=== PATIENT | male | born 1930 | race Hispanic/Latino ===

== ENCOUNTER 2020-07-18 14:04 | Inpatient (IN) | payer MEDICARE ==
[~2020-07-18] VITALS: Ht 162.6 cm; Wt 79.4 kg
[2020-07-18] MEDS ORDERED: METFORMIN HCL500 MG PO (14:27)
[2020-07-18] MEDS ORDERED: METHOTREXATE2.5 MG PO (14:27)
[2020-07-18] MEDS ORDERED: METOPROLOL SUCC25 MG PO (14:27)
[2020-07-18] MEDS ORDERED: SIMVASTATIN40 MG PO (14:27)
[2020-07-18] MEDS ORDERED: GLIPIZIDE5 MG PO (14:27)
[2020-07-18] MEDS ORDERED: FOLIC ACID0.4 MG PO (14:27)
[2020-07-18] MEDS ORDERED: LEVOTHYROXINE50 MCG PO (14:27)
--- OUTSIDE RECORDS SUMMARY | 2020-07-18 14:36 | XMS REPORT | Continuity of Care Document ---
Author Author [facility] Organization [facility] Address [address] [place] [address] Phone Unavailable Care Team Providers Care Billet Shearer Name Role Phone ELEUTERIO REED, AURY PCP Unavailable ALESSANDRA GUTIERREZ Unavailable Payers Payer Name Policy Type Policy Number Effective Date Expiration Date S mary [employer] Medicare Replacement [id number] [facility] Problems This patient has no known problems. Allergies, Adverse Reactions, Alerts This patient has no known allergies or adverse reactions. Medications This patient has no known medications. Procedures Procedure Date / Time Performed Performing Clinician [facility] e X-ray of chest, two views 2019-12-10 00:00:[address] [facility] Encounters Start Date/Time End Date/Time Encounter Type Admission Type Attendi [facility] Care Department Encounter ID Source 2019-12-10 07:32:00 2019-12-10 11:15:00 Departed Emergency Room 1 ALESSANDRA GUTIERREZ [facility] [id number] [facility] Results Test Description Test Time Test Comments Results Result Comments Source CHEST 2 VIEWS 2019-12-10 10:21:00 [facility] [address] [place], [place] [address] Patient Name: SHERIE HEATON MR #: [id number] : 1930 Age/Sex: 89/M Req #: [id number] Adm Physician: Ordered by: ALESSANDRA GUTIERREZ DO Report #: [id number] Location: ER Room/Bed: Procedure: [id number] DX/CHEST 2 VIEWS Exam Date: 12/10/19 Exam Time: 0907 REPORT STATUS: Signed EXAMINATION: CHEST 2 VIEWS INDICATION: Chest pain COMPARISON: None FINDINGS: LINES/TUBES:None LUNGS:The lung volumes are low. Mild pulmonary vascular crowding related to low lung volumes. No focal consolidation or pulmonary [place]. PLEURA:No pleural effusion or pneumothorax. MEDIASTINUM:The cardiomediastinal silhouette appears normal in size and shape. Atherosclerotic calcifications of the thoracic aorta. BONES/SOFT TISSUES:No acute osseous injury. ABDOMEN:No free air under the diaphragm. IMPRESSION: Low lung volumes. No focal pneumonia or pulmonary edema. Signed by: Erin Carrizales MD on 12/10/2019 10:22 AM Dictated By: ERIN CARRIZALES MD 1022 Transcribed By: JIMMY on 12/10/19 1022 COPY TO: ALESSANDRA GUTIERREZ DO B-Type Natriuretic Peptide 2019-12-10 09:41:00 Test Item B-Type Natriuretic Peptide (test code = 80614-0) 403.8 0-100 H [facility]ine Kinase [id number] 08:54:00* Test Item Value Reference Range Interpretation Comments Creatine Kinase MB (test code = 11682-7) 2.10 0-5.0 [facility]inteTroponin [id number] 08:54:00* Test Item Value Reference Range Interpretation Comments Troponin I (test code = FYS8530) 0.022 0-0.300 [facility] [id number] 08:30:00* Test Item Value Reference Range Interpretation Comments Sodium Level (test code = 2951-2) 140 136-145 [facility]Potassium [id number] 08:30:00* Test Item Value Reference Range Interpretation Comments Potassium Level (test code = 2823-3) 4.3 3.5-5.1 [facility]Chloride [id number] 08:30:00* Test Item Value Reference Range Interpretation Comments Chloride Level (test code = 2075-0) 108 98-107 H [facility]inteCarbon Dioxide [id number] 08:30:00* Test Item Value Reference Range Interpretation Comments Carbon Dioxide Level (test code = 2028-9) 24 22-29 [facility]inteAnion [id number] 08:30:00* Test Item Value Reference Range Interpretation Comments Anion Gap (test code = 37107-1) 12.3 8-16 [facility]inteBlood Urea Fzvpgmpp5910-63-89 08:30:00* Test Item Value Reference Range Interpretation Comments Blood Urea Nitrogen (test code = 3094-0) 12 7-26 [facility]inteCreatinine2020-01-14 08:30:00* Test Item Value Reference Range Interpretation Comments Creatinine (test code = 2160-0) 0.84 0.72-1.25 [facility]inteBUN/Creatinine Cwikp0436-12-29 08:30:00* Test Item Value Reference Range Interpretation Comments BUN/Creatinine Ratio (test code = 3097-3) 14 6- [facility] PointeEstimat Glomerular Filtration Rate 2019-12-10 08:30:00* Test Item Value Reference Range Interpretation Comments Estimat Glomerular Filtration Rate (test code = 683385746) > 60 >60 Ranges were taken from the National Kidney Disease Education Program and the [facility] Foundation literature.Reference ranges:60 or greater: Rcmnja16-25 ( for 3 consecutive months): Chronic kidney disease 15 or less: Kidney failureBaylor Scott & [facility] Medical Center – Lake PointeGlucose Whqkr5768-10-41 08:30:00* Test Item Value Reference Range Interpretation Comments Glucose Level (test code = NFZ0221) 90 74-118 [facility]inteCalcium Brrbj9946-19-29 08:30:00* Test Item Value Reference Range Interpretation Comments Calcium Level (test code = 80960-9) 8.1 8.4-10.2 L [facility] PointeTotal Zeyrjwkrh0660-01-17 08:30:00* Test Item Value Reference Range Interpretation Comments Total Bilirubin (test code = 1975-2) 1.0 0.2-1.2 [facility] PointeAspartate Amino Transf (AST/SGOT) 2019-12-10 08:30:00* Test Item Value Reference Range Interpretation Comments Aspartate Amino Transf (AST/SGOT) (test code = Aspartate Amino Transf (AST/SGOT)) 44 5-34 H [facility] PointeAlanine Aminotransferase (ALT/SGPT) 2019-12-10 08:30:00* Test Item Value Reference Range Interpretation Comments Alanine Aminotransferase (ALT/SGPT) (test code = 1742-6) 25 0-55 [facility] Yhjlbyz3445-03-03 08:30:00* Test Item Value Reference Range Interpretation Comments Total Protein (test code = 2885-2) 6.4 6.5-8.1 L [facility] PointeAlbumin2020-01-14 08:30:00* Test Item Value Reference Range Interpretation Comments Albumin (test code = 1751-7) 2.9 3.5-5.0 L [facility] PointeGlobulin2020-01-14 08:30:00* Test Item Value Reference Range Interpretation Comments Globulin (test code = 21866-2) 3.5 2.3-3.5 [facility] PointeAlbumin/Globulin [id number] 08:30:00 * Test Item Value Reference Range Interpretation Comments Albumin/Globulin Ratio (test code = 1759-0) 0.8 0.8-2.0 [facility] PointeAlkaline Szfwsrobahx8586-23-26 08:30:00* Test Item Value Reference Range Interpretation Comments Alkaline Phosphatase (test code = 6768-6) 138 40-150 [facility]inteCreatine [id number] 08:30:00* Test Item Value Reference Range Interpretation Comments Creatine Kinase (test code = 2157-6) 71 30-200 [facility] PointeWhite Blood [id number] 08:08:00* Test Item Value Reference Range Interpretation Comments White Blood Count (test code = 6690-2) 5.80 4.8-10.8 [facility] PointeRed Blood Fxhju0268-96-84 08:08:00* Test Item Value Reference Range Interpretation Comments Red Blood Count (test code = 789-8) 2.89 4.3-5.7 L [facility] PointeHemoglobin2020-01-14 08:08:00* Test Item Value Reference Range Interpretation Comments Hemoglobin (test code = 35192-7) 9.8 14.0-18.0 L [facility] PointeHematocrit2020-01-14 08:08:00* Test Item Value Reference Range Interpretation Comments Hematocrit (test code = 4544-3) 28.7 38.2-49.6 L [facility] PointeMean Corpuscular Bfsbjh3439-49-90 08:08:00* Test Item Value Reference Range Interpretation Comments Mean Corpuscular Volume (test code = 787-2) 99.3 81-99 H [facility] PointeMean Corpuscular Qnlxgtollj5708-15-96 08:08:00* Test Item Value Reference Range Interpretation Comments Mean Corpuscular Hemoglobin (test code = 785-6) 33.9 28-32 H [facility] PointeMean Corpuscular Hemoglobin Concent 2019-12-10 08:08:00* Test Item Value Reference Range Interpretation Comments Mean Corpuscular Hemoglobin Concent (test code = 786-4) 34.1 31-35 [facility] PointeRed Cell Distribution Epujm7327-60-29 08:08:00* Test Item Value Reference Range Interpretation Comments Red Cell Distribution Width (test code = 07185-7) 16.1 11.7 -14.4 H [facility] PointePlatelet Wglsy5318-62-07 08:08:00* Test Item Value Reference Range Interpretation Comments Platelet Count (test code = 777-3) 82 140-360 L [facility] PointeNeutrophils (%) (Auto)2019-12-10 08:08:00 * Test Item Value Reference Range Interpretation Comments Neutrophils (%) (Auto) (test code = 01029-8) 68.9 38.7-80.0 [facility] PointeLymphocytes (%) (Auto)2019-12-10 08:08:00 * Test Item Value Reference Range Interpretation Comments Lymphocytes (%) (Auto) (test code = 736-9) 17.4 18.0-39.1 L [facility] PointeMonocytes (%) (Auto)2019-12-10 08:08:00* Test Item Value Reference Range Interpretation Comments Monocytes (%) (Auto) (test code = 5905-5) 10.5 4.4-11.3 [facility]inteEosinophils (%) (Auto)2019-12-10 08:08:00 * Test Item Value Reference Range Interpretation Comments Eosinophils (%) (Auto) (test code = 713-8) 2.6 0.0-6.0 [facility] PointeBasophils (%) (Auto)2019-12-10 08:08:00* Test Item Value Reference Range Interpretation Comments Basophils (%) (Auto) (test code = 706-2) 0.3 0.0-1.0 [facility] PointeIM GRANULOCYTES %2019-12-10 08:08:00* Test Item Value Reference Range Interpretation Comments IM GRANULOCYTES % (test code = IM GRANULOCYTES %) 0.3 0.0- 1.0 [facility] PointeNeutrophils # (Auto)2019-12-10 08:08:00* Test Item Value Reference Range Interpretation Comments Neutrophils # (Auto) (test code = 751-8) 4.0 2.1-6.9 [facility] PointeLymphocytes # (Auto)2019-12-10 08:08:00* Test Item Value Reference Range Interpretation Comments Lymphocytes # (Auto) (test code = 65524-2) 1.0 1.0-3.2 [facility] PointeMonocytes # (Auto)2019-12-10 08:08:00* Test Item Value Reference Range Interpretation Comments Monocytes # (Auto) (test code = 742-7) 0.6 0.2-0.8 [facility]inteEosinophils # (Auto)2019-12-10 08:08:00* Test Item Value Reference Range Interpretation Comments Eosinophils # (Auto) (test code = 711-2) 0.2 0.0-0.4 [facility]inteBasophils # (Auto)2019-12-10 08:08:00* Test Item Value Reference Range Interpretation Comments Basophils # (Auto) (test code = 704-7) 0.0 0.0-0.1 [facility] Lake PointeAbsolute Immature Granulocyte (auto 2019-12-10 08:08:00* Test Item Value Reference Range Interpretation Comments Absolute Immature Granulocyte (auto (rich t code = Absolute Immature Granulocyte (auto) 0.02 0-0.1 [facility]
[2020-07-18 14:54] LABS: BASOPHILS % 0.2 % (0.0-1.0); EOSINOPHILS # (AUTO) 0.2 (0.0-0.4); LYMPHOCYTES # (AUTO) 0.6 (1.0-3.2); LYMPHOCYTES % 10.9 % (18.0-39.1); MEAN CORPUSCULAR HEMOGLOBIN 34.5 pg (28-32); MEAN CORPUSCULAR HGB CONC 34.3 g/dL (31-35); MEAN CORPUSCULAR VOLUME 100.6 fL (81-99); MONOCYTES % 0.8 % (4.4-11.3); NEUTROPHILS # (AUTO) 4.4 (2.1-6.9); NEUTROPHILS % 83.7 % (38.7-80.0); RED BLOOD COUNT 1.71 x10e6/uL (4.3-5.7); RED CELL DISTRIBUTION WIDTH 14.9 % (11.7-14.4)
[2020-07-18 15:13] LABS: HEMATOCRIT 17.2 % (38.2-49.6); HEMOGLOBIN 5.9 g/dL (14.0-18.0); PLATELET COUNT 34 x10e3/uL (140-360)
[2020-07-18 15:23] LABS: ALANINE AMINOTRANSFERASE 74 IU/L (0-55); ALBUMIN 2.4 g/dL (3.5-5.0); ALBUMIN/GLOBULIN RATIO 0.7 (0.8-2.0); ALKALINE PHOSPHATASE 143 IU/L (40-150); ANION GAP 15.3 mmol/L (8-16); BLOOD UREA NITROGEN 36 mg/dL (7-26); BUN/CREATININE RATIO 32 (6-25); CALCIUM 8.3 mg/dL (8.4-10.2); CARBON DIOXIDE 19 mmol/L (22-29); CHLORIDE 109 mmol/L (98-107); CREATINE KINASE 46 IU/L (30-200); CREATININE, SERUM 1.14 mg/dL (0.72-1.25); EST GLOMERULAR FILTRATION RATE > 60 ML/MIN (60-); GLUCOSE 73 mg/dL (74-118); MAGNESIUM 1.8 MG/DL (1.3-2.1); POTASSIUM 4.3 mmol/L (3.5-5.1); SODIUM 139 mmol/L (136-145)
[2020-07-18] MEDS ORDERED: SODIUM CHLORIDE 0.9% 250ML 250 ML IV ONE (15:30)
[2020-07-18] MEDS ORDERED: PANTOPRAZOLE 40 MG 10ML VIAL IV ONE (15:51)
[2020-07-18] MEDS ORDERED: OCTREOTIDE ACETATE 0.05 MG/ML AMP IV STA (15:51)
[2020-07-18] MEDS ORDERED: OCTREOTIDE ACETATE 400 MCG in SODIUM CHLORIDE 0.9% 250ML 200 ML IV SCH (16:00)
--- NOTE | 2020-07-18 16:07 | Emergency Department Note ---
History of Present Illnes History of Present Illness Chief Complaint: General Medicine Complaints History of Present Illness This is a 89 year old male WITH GENERALIZED WEAKNESS & SOB WITH EXERTION, MUCH WORSE TODAY BUT STARTED SEVERAL DAYS AGO. ALSO WITH NAUSEA. STS THAT LAST TIME HE FELT LIKE THIS HE NEEDED A BLOOD TRANSFUSION. THAT WAS 6 MONTHS AGO. Historian: Patient Arrival Mode: Car Onset (how long ago): day(s) (5) Location: GENERALIZED Quality: WEAKNESS/FATIGUE Radiation: Reports non-radiation Severity: moderate Onset quality: gradual Timing of current episode: constant Progression: worsening Chronicity: recurrent Context: Denies recent illness Relieving factors: none Exacerbating factors: none Associated symptoms: Reports denies other symptoms, Reports shortness of breath; Denies chest pain, Denies cough, Denies diaphoresis, Denies fever/chills Past Medical/Family History Physician Review I have reviewed the patient's past medical and family history. Any updates have been documented here. Past Medical History Recent Fever: No Clinical Suspicion of Infectio: No New/Unexplained Change in Ment: No Past Medical History: Hypertension, Diabetes, Anemia Other Surgery: LEFT EAR SURGERY Social History Smoking Cessation: Never Smoker Counseling Performed: No Alcohol Use: None Any Illegal Drug Use: No TB Exposure/Symptoms: No Physically hurt or threatened: No Family History Family history of heart diseas: No Other Last Tetanus: UNKNOWN Any Pre-Existing Lines (PICC,: No Review of Systems Review of Systems Constitutional: Reports as per HPI EENTM: Reports no symptoms Cardiovascular: Reports no symptoms Respiratory: Reports as per HPI Gastrointestinal: Reports no symptoms Genitourinary: Reports no symptoms Musculoskeletal: Reports no symptoms Integumentary: Reports no symptoms Neurological: Reports no symptoms Psychological: Reports no symptoms Endocrine: Reports no symptoms Hematological/Lymphatic: Reports no symptoms Physical Exam Related Data Allergies: Coded Allergies: No Known Allergies (Unverified , 12/10/19) Triage Vital Signs Vital Signs Date Time Temp Pulse Resp B/P (MAP) Pulse Ox O2 Delivery O2 Flow Rate FiO2 07/18/20 14:11 98.4 85 18 163/60 100 Room Air Vital signs reviewed: Yes Physical Exam CONSTITUTIONAL Constitutional: Present well-developed, Present well-nourished HENT HENT: Present normocephalic, Present atraumatic, Present oropharynx clear/moist, Present nose normal HENT L/R: Present left ext ear normal, Present right ext ear normal EYES Eyes: Reports PERRL, Reports other (PALE CONJUNCTIVA) NECK Neck: Present ROM normal PULMONARY Pulmonary: Present effort normal, Present breath sounds normal CARDIOVASCULAR Cardiovascular: Present regular rhythm, Present heart sounds normal, Present capillary refill normal, Present normal rate, Present LLE edema (TRACE), Present RLE edema (TRACE) GASTROINTESTINAL Abdominal: Present soft, Present nontender, Present bowel sounds normal GENITOURINARY Genitourinary: Present exam deferred SKIN Skin: Present warm, Present dry MUSCULOSKELETAL Musculoskeletal: Present ROM normal NEUROLOGICAL Neurological: Present alert, Present oriented x 3, Present no gross motor or sensory deficits PSYCHOLOGICAL Psychological: Present mood/affect normal, Present judgement normal Results Laboratory Result Diagram: 07/18/20 1435 07/18/20 1435 Laboratory Laboratory Tests Test 07/18/20 14:35 White Blood Count 5.25 x10e3/uL (4.8-10.8) Red Blood Count 1.71 x10e6/uL (4.3-5.7) Hemoglobin 5.9 g/dL (14.0-18.0) Hematocrit 17.2 % (38.2-49.6) Mean Corpuscular Volume 100.6 fL (81-99) Mean Corpuscular Hemoglobin 34.5 pg (28-32) Mean Corpuscular Hemoglobin Concent 34.3 g/dL (31-35) Red Cell Distribution Width 14.9 % (11.7-14.4) Platelet Count 34 x10e3/uL (140-360) Neutrophils (%) (Auto) 83.7 % (38.7-80.0) Lymphocytes (%) (Auto) 10.9 % (18.0-39.1) Monocytes (%) (Auto) 0.8 % (4.4-11.3) Eosinophils (%) (Auto) 4.0 % (0.0-6.0) Basophils (%) (Auto) 0.2 % (0.0-1.0) Neutrophils # (Auto) 4.4 (2.1-6.9) Lymphocytes # (Auto) 0.6 (1.0-3.2) Monocytes # (Auto) 0.0 (0.2-0.8) Eosinophils # (Auto) 0.2 (0.0-0.4) Basophils # (Auto) 0.0 (0.0-0.1) Absolute Immature Granulocyte (auto 0.02 x10e3/uL (0-0.1) Sodium Level 139 mmol/L (136-145) Potassium Level 4.3 mmol/L (3.5-5.1) Chloride Level 109 mmol/L (98-107) Carbon Dioxide Level 19 mmol/L (22-29) Anion Gap 15.3 mmol/L (8-16) Blood Urea Nitrogen 36 mg/dL (7-26) Creatinine 1.14 mg/dL (0.72-1.25) Estimat Glomerular Filtration Rate > 60 ML/MIN (60-) BUN/Creatinine Ratio 32 (6-25) Glucose Level 73 mg/dL (74-118) Calcium Level 8.3 mg/dL (8.4-10.2) Magnesium Level 1.8 MG/DL (1.3-2.1) Total Bilirubin 1.4 mg/dL (0.2-1.2) Aspartate Amino Transf (AST/SGOT) 111 IU/L (5-34) Alanine Aminotransferase (ALT/SGPT) 74 IU/L (0-55) Alkaline Phosphatase 143 IU/L (40-150) Creatine Kinase 46 IU/L (30-200) Creatine Kinase MB 1.00 ng/mL (0-5.0) Troponin I 0.028 ng/mL (0-0.300) B-Type Natriuretic Peptide 285.9 pg/mL (0-100) Total Protein 5.8 g/dL (6.5-8.1) Albumin 2.4 g/dL (3.5-5.0) Globulin 3.4 g/dL (2.3-3.5) Albumin/Globulin Ratio 0.7 (0.8-2.0) Lab results reviewed: Yes Imaging Imaging Comments STILL AWAIT RADIOLOGIST READING Critical Care Time Total Critical Care Time (min): 35 Critical care time exclusive o: separately billable procedures Critcal care necessary due to: other (ANEMIA) Critcal care time spent by me: discussion w consultants, discussion w primary provider, evaluation patient response to tx, order/review laboratory studies, re-evaluation of patient condition Assessment & Plan Medical Decision Making MDM CBC, CHEM, CARDIACS, CXR, BNP, PT/PTT - R/O SYMPTOMATIC ANEMIA, CHF, PNEUMONIA, NSTEMI Reassessment Reassessment SPOKE WITH DR GRAF FOR ADMISSION, CALL TO Montse NARAYAN Assessment & Plan Final Impression: (1) Anemia (2) Thrombocytopenia Depart Disposition: ADMITTED Last Vital Signs Date Time Temp Pulse Resp B/P (MAP) Pulse Ox O2 Delivery O2 Flow Rate FiO2 07/18/20 14:52 85 17 135/48 100 Room Air 07/18/20 14:11 98.4 Home Meds Reported Medications Simvastatin (SIMVASTATIN) 40 Mg Tablet, 40 MG PO 2100, #30 TAB 07/18/20 Levothyroxine Sodium (LEVOTHYROXINE SODIUM) 50 Mcg Tablet, 25 MCG PO DAILY, #30 TAB 07/18/20 Folic Acid (FOLIC ACID) 0.4 Mg Tablet, 1 TAB PO DAILY 07/18/20 Methotrexate Sodium (METHOTREXATE) 2.5 Mg Tablet, 2.5 MG PO DAILY, #30 TAB 07/18/20 Metoprolol Succinate (METOPROLOL SUCCINATE) 25 Mg Tab.er.24h, 25 MG PO DAILY 07/18/20 Glipizide (GLIPIZIDE) 5 Mg Tablet, 10 MG PO DAILY, TAB 07/18/20 Metformin Hcl (METFORMIN HCL) 500 Mg Tablet, 500 MG PO BID, #60 TAB 07/18/20 Medications in the ED Sodium Chloride 250 ml @ 0 mls/hr ONCE ONCE IV ; Start 07/18/20 at 15:30; Stop 07/18/20 at 15:31 Furosemide 20 mg UD PRN IV SHORTNESS OF BREATH; Start 07/18/20 at 15:30; Stop 08/17/20 at 15:29 Pantoprazole Sodium 80 mg NOW ONCE IV ; Start 07/18/20 at 15:51; Stop 07/18/20 at 15:52 Pantoprazole Sodium 40 mg Q12HR IV ; Start 07/18/20 at 21:00; Stop 08/17/20 at 20:59 Octreotide Acetate 0.05 mg ONCE STAT IV ; Start 07/18/20 at 15:51; Stop 07/18/20 at 15:52 Octreotide Acetate 400 mcg/ Sodium Chloride 200 ml @ 25 mls/hr Q8H IV ; Start 07/18/20 at 16:00; Stop 07/18/20 at 16:02; Status DC Octreotide Acetate 500 mcg/ Sodium Chloride 250 ml @ 25 mls/hr Q10H IV ; Start 07/18/20 at 16:15; Stop 08/17/20 at 16:14 TIFFANY LEONARD MD Jul 18, 2020 16:06
[2020-07-18 16:09] LABS: INR 1.17; PROTHROMBIN TIME 15.5 seconds (11.9-14.5)
[2020-07-18 16:10] LABS: PARTIAL THROMBOPLASTIN TIME 35.3 seconds (23.8-35.5)
[2020-07-18] MEDS ORDERED: SODIUM CHLORIDE 0.9% 1000ML 1,000 ML IV SCH (16:15)
[2020-07-18] MEDS: OCTREOTIDE ACETATE 500 MCG in SODIUM CHLORIDE 0.9% 250ML 249 ML IV SCH (16:38)
--- NOTE | 2020-07-18 16:40 | NUR ---
consent for blood signed and placed into chart
[2020-07-18 16:59] LABS: EOSINOPHILS % (MANUAL) 3 % (0-7)
[2020-07-18 17:00] LABS: LYMPHOCYTES % (MANUAL) 8 % (19-48); NEUTROPHILS % (MANUAL) 89 % (40-74)
[2020-07-18 17:01] LABS: RBC MORPHOLOGY COMMENT NORMAL
--- NOTE | 2020-07-18 17:25 | Diagnostic Imaging Report ---
EXAMINATION: CHEST SINGLE (PORTABLE) INDICATION: SOB. COMPARISON: Chest radiograph 12-10-2019. FINDINGS: LINES/TUBES:None LUNGS:The lung volumes are low with vascular crowding. No evidence of pneumonia or pulmonary edema. PLEURA:No pleural effusion or pneumothorax. MEDIASTINUM:The cardiomediastinal silhouette appears normal in size and shape. Atherosclerotic calcifications of the thoracic aorta. BONES/SOFT TISSUES:No acute osseous injury. ABDOMEN:No free air under the diaphragm. IMPRESSION: No acute radiographic abnormality. Signed by: Dr. Terence Louis MD on 07/18/2020 5:22 PM
--- NOTE | 2020-07-18 18:03 | NUR ---
Received patient from ER. Respiration even and unlabored without SOB. 1st unit of blood is transfusing at this time to right AC and Sandostatin IV transfusing to Left AC. Denies pain. Patient orientated to room and call button.
--- NOTE | 2020-07-18 18:45 | NUR ---
1st unit of blood is finished at this time. VS stable. Denies SOB. Call light in reach. Report given to night nurse.
[2020-07-18] MEDS ORDERED: ASPIRIN81 MG (19:09)
--- NOTE | 2020-07-18 20:04 | NUR ---
RECEIVED PT IN BED AOX3 .RESPIRATIONS ARE EVEN AND UNLABORED PT GOT 1 UNIT OF BLOOD .AND SOMATOSTATIN IS INFUSING .DENIES PAIN CALL LIGHT WITH IN REACH ,CONTINUE TO MONITOR
[2020-07-18] MEDS: PANTOPRAZOLE 40 MG 10ML VIAL IV SCH (21:03)
[2020-07-18] MEDS ORDERED: SODIUM CHLORIDE 0.9% 250ML 250 ML ONE (21:13)
[2020-07-18] MEDS: FUROSEMIDE INJ 10 MG/ML 2 ML VIAL IV PRN (22:00)
[2020-07-19] VITALS (9 sets, daily range): BP systolic 108–165; BP diastolic 62–90
[2020-07-19] MEDS ORDERED: DEXTROSE 50% SYRINGE 50 ML IV PRN
[2020-07-19] MEDS ORDERED: SODIUM CHLORIDE 0.9% 250ML 250 ML ONE ×2 (01:56→22:59)
[2020-07-19] MEDS: OCTREOTIDE ACETATE 500 MCG in SODIUM CHLORIDE 0.9% 250ML 249 ML IV SCH ×3 (02:15→23:00)
--- NOTE | 2020-07-19 03:09 | NUR ---
2ND UNIT OF BLOOD IA GIVEN ,NO ACUTE DISTRESS NOTED .3RD UNIT OF BLOOD IS INFUSING DENIES PAIN CALL LIGHT WITH IN REACH ,CONTINUE TO MONIOTR
[2020-07-19] MEDS: FUROSEMIDE INJ 10 MG/ML 2 ML VIAL IV PRN (05:00)
[2020-07-19] MEDS ORDERED: ACETAMINOPHEN 325 MG TAB PO ONE (05:45)
--- NOTE | 2020-07-19 06:29 | NUR ---
GIVEN 2 UNIT OF BLOOD DURING THE SHIFT ,NO ACUTE DISTRESS NOTED ,PT C/O HEADACHE GIVEN TYLENOL 650 X1 ,CONTINUE TO MONITOR
--- NOTE | 2020-07-19 07:00 | NUR ---
RCD PT AT BED PT IS ALERT AND ORIENTED PT RESTING ON BED BED LOW AND LOCKED CALL LIGHT IN REAC
--- NOTE | 2020-07-19 07:13 | NUR ---
BEDSIDE REPORT GIVEN TO THE ONCOMING NURSE
[2020-07-19] MEDS: INSULIN REGULAR, HUMAN 100 UNIT/1 ML 3ML VIAL SQ SCH ×4 (07:30→21:00)
[2020-07-19 08:22] LABS: EOSINOPHILS # (AUTO) 0.1 (0.0-0.4); EOSINOPHILS % 3.2 % (0.0-6.0); HEMOGLOBIN 9.2 g/dL (14.0-18.0); LYMPHOCYTES # (AUTO) 0.5 (1.0-3.2); LYMPHOCYTES % 10.9 % (18.0-39.1); MEAN CORPUSCULAR HEMOGLOBIN 31.9 pg (28-32); MEAN CORPUSCULAR HGB CONC 34.1 g/dL (31-35); MEAN CORPUSCULAR VOLUME 93.8 fL (81-99); MONOCYTES % 0.7 % (4.4-11.3); NEUTROPHILS # (AUTO) 3.5 (2.1-6.9); NEUTROPHILS % 84.7 % (38.7-80.0); RED BLOOD COUNT 2.88 x10e6/uL (4.3-5.7); RED CELL DISTRIBUTION WIDTH 15.1 % (11.7-14.4)
[2020-07-19 08:32] LABS: PLATELET COUNT 19 x10e3/uL (140-360)
--- NOTE | 2020-07-19 08:45 | NUR ---
PAGED AND NOTIFIED THE PLATELET LEVEL TO TED ORTEGA ,NO NEW ORDERS SINCE THE PT RUNNING ONE UNIT OF PLATELET
[2020-07-19 08:47] LABS: ALBUMIN 2.4 g/dL (3.5-5.0); ALBUMIN/GLOBULIN RATIO 0.7 (0.8-2.0); ANION GAP 13.8 mmol/L (8-16); CALCIUM 8.2 mg/dL (8.4-10.2); CREATININE, SERUM 1.16 mg/dL (0.72-1.25); POTASSIUM 4.8 mmol/L (3.5-5.1)
--- NOTE | 2020-07-19 08:50 | NUR ---
PLATELET TRANSFUSION STARTED AFTER VERIFIED WITH ANOTHER RN AND AFTER VITALS
[2020-07-19] MEDS: LEVOTHYROXINE SODIUM 50 MCG TAB PO SCH (09:00)
[2020-07-19] MEDS: PANTOPRAZOLE 40 MG 10ML VIAL IV SCH ×2 (09:00→21:21)
[2020-07-19] MEDS: METOPROLOL SUCCINATE 25 MG TAB XL PO SCH (09:00)
[2020-07-19 09:06] LABS: % IRON SATURATION 96 % (15-50); IRON 194 ug/dL (65-175); TOTAL IRON BINDING CAPACITY 203 ug/dL (261-478); TRANSFERRIN 145 mg/dL (174-364)
[2020-07-19 09:12] LABS: B-TYPE NATRIURETIC PEPTIDE2 193.8 pg/mL (0-100)
[2020-07-19] MEDS ORDERED: SODIUM CHLORIDE 0.9% 1000ML 1,000 ML IV ONE (10:00)
--- NOTE | 2020-07-19 10:27 | NUR ---
pt went to procedure in safe condition
[2020-07-19] MEDS ORDERED: IOPAMIDOL 370 MG/ML 200 ML INFUS..BTL INJ ONE (10:32)
--- NOTE | 2020-07-19 11:01 | Diagnostic Imaging Report ---
EXAM: CT Abdomen and Pelvis WITH contrast INDICATION: Thrombocytopenia. Anemia. Elevated liver enzymes and anemia. COMPARISON: None. TECHNIQUE: Abdomen and pelvis were scanned utilizing a multidetector helical scanner from the lung base to the pubic symphysis after administration of IV contrast. Coronal and sagittal reformations were obtained. Routine protocol was performed. Scan was performed when during portal venous phase. IV CONTRAST: 150 mL of Omnipaque 300 ORAL CONTRAST: Water RADIATION DOSE: Total DLP: 759.80 mGy*cm Estimated effective dose: (DLP x 0.015 x size factor) mSv COMPLICATIONS: None FINDINGS: LINES and TUBES: None. LOWER THORAX: Bibasilar atelectasis. Extensive coronary artery calcifications. HEPATOBILIARY: Mild nodular hepatic contour. The liver is shrunken, with a hypertrophy of the caudate lobe, consistent with cirrhotic morphology. No focal hepatic lesions. No biliary ductal dilation. GALLBLADDER: There are cholecystectomy clips. SPLEEN: No splenomegaly. PANCREAS: No focal masses or ductal dilatation. ADRENALS: No adrenal nodules KIDNEYS/URETERS: Kidneys enhance symmetrically. No hydronephrosis. No cystic or solid mass lesions. No stones. GI TRACT: No abnormal distention to suggest obstruction. Mild diffuse wall thickening of the colon may be in part related to underdistention, however, cannot exclude portal colon. There is also diffuse wall thickening of the second and third portions of the duodenum. There are diverticula within the colon without evidence of diverticulitis. Appendix is nonvisualized, with metallic densities in the right lower quadrant, possibly reflecting appendectomy. PELVIC ORGANS/BLADDER: Unremarkable. LYMPH NODES: No lymphadenopathy. VESSELS: There is moderate atherosclerotic disease in the aorta and major arterial branches. Extensive collateral venous circulation, with spontaneous left splenorenal shunt. Recanalized umbilical vein. Minimal hypodensity in the anterior aspect as seen on image 29 series 2 consistent with mild nonocclusive thrombus. PERITONEUM / RETROPERITONEUM: Moderate volume ascites. BONES: There are degenerative changes in the lumbar spine. Lower thoracic DISH. SOFT TISSUES: Unremarkable. IMPRESSION: 1. Hepatic cirrhosis. 2. Portal hypertension with a large collaterals and spontaneous left splenorenal shunt. 3. Mild nonocclusive main portal vein thrombus. This could be further evaluated with ultrasound Doppler of the hepatosplenic vasculature if warranted. 4. Moderate volume ascites. 5. Status post cholecystectomy. No significant biliary dilatation. 6. Diverticulosis coli without acute diverticulitis. Signed by: Dr. Erik Westbrook M.D. on 07/19/2020 10:57 AM
--- NOTE | 2020-07-19 11:02 | Diagnostic Imaging Report ---
EXAMINATION: CHEST SINGLE (PORTABLE) INDICATION: SOB. COMPARISON: Chest radiograph 07/18/2020. FINDINGS: LINES/TUBES:None LUNGS:The lung volumes are low with bibasilar subsegmental atelectasis and crowding of the pulmonary vasculature bilaterally. No evidence of pneumonia or pulmonary edema. PLEURA:No pleural effusion or pneumothorax. MEDIASTINUM:The cardiomediastinal silhouette appears normal in size and shape. Atherosclerotic calcifications of the thoracic aorta. BONES/SOFT TISSUES:No acute osseous injury. ABDOMEN:No free air under the diaphragm. IMPRESSION: Mild bibasilar atelectasis. Signed by: Dr. Erik Westbrook M.D. on 07/19/2020 10:58 AM
--- NOTE | 2020-07-19 11:18 | NUR ---
AC TO LAB PAGED AND TALKED DR GRAF REGARDING THE NEXT CBC HE SAID SKIP THE NEXT ONE
--- NOTE | 2020-07-19 14:00 | NUR ---
PLATELET LEVEL AND OCCULT BLOOD POSITIVE NOTIFIED TO DR GRAF WHEN HE CAME TO SEE THE PATIENT
[2020-07-19] MEDS: SODIUM CHLORIDE 0.9% 1000ML 1,000 ML IV SCH (15:30)
[2020-07-19 17:50] LABS: EOSINOPHILS # (AUTO) 0.1 (0.0-0.4); EOSINOPHILS % 2.5 % (0.0-6.0); HEMATOCRIT 27.3 % (38.2-49.6); HEMOGLOBIN 9.1 g/dL (14.0-18.0); LYMPHOCYTES # (AUTO) 0.4 (1.0-3.2); MEAN CORPUSCULAR HEMOGLOBIN 31.7 pg (28-32); MEAN CORPUSCULAR HGB CONC 33.3 g/dL (31-35); MEAN CORPUSCULAR VOLUME 95.1 fL (81-99); MONOCYTES % 0.7 % (4.4-11.3); NEUTROPHILS # (AUTO) 3.8 (2.1-6.9); NEUTROPHILS % 87.3 % (38.7-80.0); RED BLOOD COUNT 2.87 x10e6/uL (4.3-5.7); RED CELL DISTRIBUTION WIDTH 15.3 % (11.7-14.4)
[2020-07-19 18:14] LABS: PLATELET COUNT 32 x10e3/uL (140-360)
--- NOTE | 2020-07-19 18:18 | NUR ---
PAGED AND NOTIFIED THE PLATELET LEVEL 32 L NO NEW ORDERS
--- NOTE | 2020-07-19 18:47 | NUR ---
PT RESTING ON BED BED SIDE REPORT GIVEN TO ONCOMING NURSE
--- NOTE | 2020-07-19 19:28 | NUR ---
RECEIVED PT IN BED AOX3 RESPIRATIONS ARE EVEN AND UNLABORED .DENIES PAIN ,SANDOSTATIN AND NS IS INFUSING .PT IS NPO .CALL LIGHT WITH IN REACH .CONTINUE TO MONITOR
[2020-07-19] MEDS: SIMVASTATIN 40 MG TAB PO SCH (21:21)
[2020-07-19] MEDS ORDERED: OCTREOTIDE ACETATE 1 ML ONE (22:58)
[2020-07-20] VITALS (7 sets, daily range): BP systolic 119–169; BP diastolic 52–73
[2020-07-20] MEDS: SODIUM CHLORIDE 0.9% 1000ML 1,000 ML IV SCH ×2 (04:59→18:10)
[2020-07-20] MEDS ORDERED: ACETAMIN/BUTALBITAL/CAFFEINE TAB PO PRN (05:15)
--- NOTE | 2020-07-20 05:44 | NUR ---
PT C/O HEADACHE .NOTIFIED DR BARBER CREDIT ASSOCIATE AND GIVEN THE ORDER TO GIVE FLORET .MEDICATED THE PT WITH FLORETS .CONTINUE TO MONITOR
--- NOTE | 2020-07-20 06:50 | NUR ---
CONSULTED DR MAURICIO BEDSIDE REPORT GIVEN TO THE ONCOMING NURSE
[2020-07-20 06:59] LABS: EOSINOPHILS # (AUTO) 0.1 (0.0-0.4); EOSINOPHILS % 2.2 % (0.0-6.0); HEMATOCRIT 25.9 % (38.2-49.6); HEMOGLOBIN 8.8 g/dL (14.0-18.0); LYMPHOCYTES # (AUTO) 0.4 (1.0-3.2); LYMPHOCYTES % 12.5 % (18.0-39.1); MEAN CORPUSCULAR HEMOGLOBIN 33.6 pg (28-32); MEAN CORPUSCULAR VOLUME 98.9 fL (81-99); MONOCYTES % 0.6 % (4.4-11.3); NEUTROPHILS # (AUTO) 2.6 (2.1-6.9); NEUTROPHILS % 83.7 % (38.7-80.0); RED BLOOD COUNT 2.62 x10e6/uL (4.3-5.7); RED CELL DISTRIBUTION WIDTH 15.2 % (11.7-14.4)
[2020-07-20 07:10] LABS: PLATELET COUNT 34 x10e3/uL (140-360)
--- NOTE | 2020-07-20 07:21 | NUR ---
ASSUMED CARE. PATIENT RESTING IN BED. NO DISTRESS NOTED. CALL LIGHT IN REACH. SIDE RAILS UP X2. BED LOW AND LOCKED.
[2020-07-20] MEDS: INSULIN REGULAR, HUMAN 100 UNIT/1 ML 3ML VIAL SQ SCH ×4 (07:30→21:00)
[2020-07-20 07:38] LABS: ALANINE AMINOTRANSFERASE 71 IU/L (0-55); ALBUMIN 2.2 g/dL (3.5-5.0); ALBUMIN/GLOBULIN RATIO 0.6 (0.8-2.0); ALKALINE PHOSPHATASE 128 IU/L (40-150); ANION GAP 15.6 mmol/L (8-16); BLOOD UREA NITROGEN 30 mg/dL (7-26); BUN/CREATININE RATIO 29 (6-25); CALCIUM 7.9 mg/dL (8.4-10.2); CARBON DIOXIDE 18 mmol/L (22-29); CHLORIDE 108 mmol/L (98-107); CREATININE, SERUM 1.02 mg/dL (0.72-1.25); EST GLOMERULAR FILTRATION RATE > 60 ML/MIN (60-); GLUCOSE 96 mg/dL (74-118); POTASSIUM 4.6 mmol/L (3.5-5.1); SODIUM 137 mmol/L (136-145)
[2020-07-20] MEDS: PROPRANOLOL HCL 10 MG TAB PO SCH ×2 (09:50→16:15)
[2020-07-20] MEDS: LEVOTHYROXINE SODIUM 50 MCG TAB PO SCH (09:50)
[2020-07-20] MEDS: PANTOPRAZOLE 40 MG 10ML VIAL IV SCH ×2 (09:50→21:24)
[2020-07-20] MEDS: METOPROLOL SUCCINATE 25 MG TAB XL PO SCH (09:50)
[2020-07-20] MEDS ORDERED: OCTREOTIDE ACETATE 2 ML ONE (13:12)
[2020-07-20] MEDS ORDERED: SODIUM CHLORIDE 0.9% 250ML 250 ML ONE (13:17)
[2020-07-20] MEDS: OCTREOTIDE ACETATE 500 MCG in SODIUM CHLORIDE 0.9% 250ML 249 ML IV SCH ×2 (13:19→18:15)
--- NOTE | 2020-07-20 17:44 | History and Physical ---
Consult to Dr. Guillen. HISTORY OF PRESENT ILLNESS: Mr. Trammell is an 89-year-old male, who was referred to me for evaluation of thrombocytopenia and portal vein thrombosis. The patient had presented with weakness and abdominal pain. SOCIAL HISTORY: Could not be obtained. FAMILY HISTORY: Could not be obtained. ALLERGIES: NONE. MEDICATIONS: At this time, 1. Sodium chloride. 2. Octreotide. 3. Protonix. 4. Metoprolol. 5. Simvastatin. 6. Tylenol. 7. Inderal. 8. Levothyroxine. 9. Lasix. 10. Protonix. 11. Dextrose. REVIEW OF SYSTEMS: HEENT: Normal. CARDIAC: Normal. RESPIRATORY: Normal. GI: Cirrhosis of liver. : Normal. MUSCULOSKELETAL: Normal. SKIN AND BREASTS: Normal. NEUROENDOCRINE: History of hypothyroidism. PHYSICAL EXAMINATION: GENERAL: A rather thin built male, bed confined, non-arousable at this time of examination. Anemic. No palpable adenopathy. HEART: Within normal limits. LUNGS: Clear. ABDOMEN: Soft. Questionable ascites. RECTAL: Could not be done. CENTRAL NERVOUS SYSTEM: Could not be done. EXTREMITIES: 1+ pitting edema of the feet. LABORATORY DATA: Lab shows a sodium of 137, potassium 4.6, chloride 108, CO2 of 18, BUN 30, and creatinine 1.02. Hemoglobin of 8.8, hematocrit 25.9, white count of 3113, and platelets of 34,000. INR 1.17. Bilirubin high at 2.4, SGOT high at 111, SGPT 71, and alkaline phosphatase 128. CT scan shows the patient to have portal vein thrombosis, spontaneous splenorenal shunt, portal hypertension, and cirrhosis of liver. There is ascites. There is also diverticulosis coli. IMPRESSION: 1. Anemia of chronic disease, perhaps even anemia of blood loss because of cirrhosis. 2. Thrombocytopenia. 3. Cirrhosis of liver. 4. Portal hypertension. 5. Spontaneous splenorenal shunt. 6. Portal vein thrombosis. 7. Ascites. 8. Diverticulosis coli. 9. Hypothyroidism. PLAN, COMMENTS, AND SUGGESTIONS: Because of his thrombocytopenia, the patient is not a candidate for long-term anticoagulation for his portal vein thrombosis. I strongly suggest to discontinue the simvastatin in this patient as this is metabolizes in the liver and his liver functions are fairly high. The anemia is not such I have to give him any blood transfusion. Platelet transfusion will be given only on demand if the patient bleeds, usually they do not bleed unless less than 20,000. However, because of portal hypertension, he could have spontaneous bleed from the esophagus. I will follow very closely with Dr. Guillen and Dr. Elmo Villarreal. I will confine myself to Hematology only, but supportive care is suggested to this 89-year-old with multiple medical problems. MD MELITA Ortiz/JOSE /[id number] cc: MD Joaquin Jacobson MD
[2020-07-20] MEDS: SIMVASTATIN 40 MG TAB PO SCH (21:24)
--- NOTE | 2020-07-20 22:00 | Progress Note ---
DATE: CONSULTING PHYSICIANS: 1. Dr. Elmo Villarreal with Gastroenterology. 2. Dr. Priscilla Reynolds with Hematology. SUBJECTIVE: The patient is lying supine. Denies any pain. He still complains of some weakness. He has mild shortness of breath. States he had diarrhea once today. OBJECTIVE: VITAL SIGNS: Temperature 97.9, heart rate 90, blood pressure 152/71, respirations 20, oxygen saturation 97% on room air. GENERAL: No acute distress. Alert and oriented x3. LUNGS: Clear. Respiratory pattern even and unlabored. HEENT: EOMI. Oropharynx clear. NECK: Supple. No thyromegaly or JVD. CARDIOVASCULAR: Regular rate and rhythm without murmur. ABDOMEN: Bowel sounds positive. Soft, nontender. EXTREMITIES: No pitting edema. No clubbing, cyanosis, or marked swelling or signs of DVT. NEUROLGICAL: GCS 15. Nonfocal. LABORATORY DATA: WBCs 3.13, hemoglobin 8.8, hematocrit 25.9, platelets 34. Sodium 137, potassium 4.6, chloride 108, CO2 18, anion gap 15.6, BUN 30, creatinine 1.02, estimated GFR greater than 60, glucose 96. Fingerstick blood glucose levels 121, 187/ Calcium 7.9, total bilirubin 2.4, AST 111, ALT 71, alkaline phosphatase 128, total protein 5.6, albumin 2.2. Coronavirus PCR was negative on 07/18. Hepatitis panel is pending. Rheumatoid panel is pending. IMAGING: Echocardiogram ordered and results pending. ASSESSMENT AND PLAN: 1. Acute blood loss anemia. The patient had 2 units of blood on 07/18, 1 unit of blood on 07/19, 1 unit of FFP on 07/19. GI following. Continue IV octreotide and Protonix. Hemoglobin 8.8, hematocrit 25.9. 2. Hypertension with possible congestive heart failure. Blood pressure controlled with metoprolol. Follow up on echocardiogram results. 3. Controlled type 2 diabetes mellitus. Serum glucose 96. Continue sliding scale insulin. 4. Liver cirrhosis, causes unknown. Denies history of alcohol use. Awaiting MARLEN and hepatitis panel. 5. Possible rheumatoid arthritis. Hold methotrexate for now. Check rheumatology screen. 6. Prophylaxis, Protonix and SCDs. Time spent 35 minutes. Billing code [id number]. Dictated by Checo Haq NP MD ROBIN Worley/JOSE /[id number]
[2020-07-21] VITALS: BP 136/48
[2020-07-21 04:00] VITALS: BP 132/54
[2020-07-21 04:28] LABS: BILIRUBIN,URINE SMALL (NEGATIVE); CLARITY,URINE CLEAR (CLEAR); COLOR,URINE YELLOW (YELLOW); KETONES,URINE 1+ (NEGATIVE); LEUKOCYTE ESTERASE ,URINE NEGATIVE (NEGATIVE); NITRITE,URINE NEGATIVE (NEGATIVE); PROTEIN,URINE DIPSTICK 1+ (NEGATIVE); URINE UROBILINOGEN 1 mg/dL (0.2 - 1)
[2020-07-21 04:38] LABS: BACTERIA,URINE FEW /HPF; EPITHELIAL CELLS,URINE MODERATE /LPF; RBC,URINE 0-5 /HPF (0-5); WBC,URINE (MAN) 0-5 /HPF (0-5)
[2020-07-21] MEDS: OCTREOTIDE ACETATE 500 MCG in SODIUM CHLORIDE 0.9% 250ML 249 ML IV SCH ×2 (06:13→14:15)
[2020-07-21 07:06] LABS: BASOPHILS % 0.6 % (0.0-1.0); EOSINOPHILS # (AUTO) 0.1 (0.0-0.4); EOSINOPHILS % 6.3 % (0.0-6.0); HEMATOCRIT 25.5 % (38.2-49.6); HEMOGLOBIN 8.5 g/dL (14.0-18.0); LYMPHOCYTES # (AUTO) 0.5 (1.0-3.2); LYMPHOCYTES % 30.5 % (18.0-39.1); MEAN CORPUSCULAR HEMOGLOBIN 31.5 pg (28-32); MEAN CORPUSCULAR HGB CONC 33.3 g/dL (31-35); MEAN CORPUSCULAR VOLUME 94.4 fL (81-99); MONOCYTES # (AUTO) 0.1 (0.2-0.8); MONOCYTES % 3.4 % (4.4-11.3); NEUTROPHILS % 57.5 % (38.7-80.0); RED CELL DISTRIBUTION WIDTH 14.6 % (11.7-14.4)
[2020-07-21 07:14] LABS: PLATELET COUNT 27 x10e3/uL (140-360)
[2020-07-21 07:21] LABS: ALANINE AMINOTRANSFERASE 56 IU/L (0-55); ALBUMIN 2.2 g/dL (3.5-5.0); ALBUMIN/GLOBULIN RATIO 0.6 (0.8-2.0); ALKALINE PHOSPHATASE 152 IU/L (40-150); ANION GAP 14.5 mmol/L (8-16); BLOOD UREA NITROGEN 28 mg/dL (7-26); BUN/CREATININE RATIO 25 (6-25); CALCIUM 7.9 mg/dL (8.4-10.2); CARBON DIOXIDE 19 mmol/L (22-29); CHLORIDE 108 mmol/L (98-107); CHOL/HDL RATIO 2.7 (3.9-4.7); CHOLESTEROL 63 MD/DL (0-199); CREATININE, SERUM 1.12 mg/dL (0.72-1.25); EST GLOMERULAR FILTRATION RATE > 60 ML/MIN (60-); GLUCOSE 118 mg/dL (74-118); HDL CHOLESTEROL 23 MG/DL (40-60); LDL CHOLESTEROL 22 MG/DL (60-130); MAGNESIUM 1.7 MG/DL (1.3-2.1); POTASSIUM 4.5 mmol/L (3.5-5.1); SODIUM 137 mmol/L (136-145); TRIGLYCERIDES 90 MG/DL (0-149)
[2020-07-21 07:42] LABS: THYROID STIMULATING HORMONE 0.146 uIU/mL (0.350-4.940)
[2020-07-21 08:17] VITALS: BP 153/54
--- NOTE | 2020-07-21 08:19 | NUR ---
DR. GUPTA NOTIFIED, NO NEW ORDERS
[2020-07-21] MEDS: SPIRONOLACTONE 25 MG TAB PO SCH ×2 (09:00→16:49)
[2020-07-21] MEDS: FUROSEMIDE 40 MG TAB PO SCH (09:00)
[2020-07-21] MEDS: PROPRANOLOL HCL 10 MG TAB PO SCH ×2 (09:09→16:49)
[2020-07-21] MEDS: LEVOTHYROXINE SODIUM 50 MCG TAB PO SCH (09:11)
[2020-07-21] MEDS: METOPROLOL SUCCINATE 25 MG TAB XL PO SCH (09:12)
[2020-07-21] MEDS: PANTOPRAZOLE 40 MG 10ML VIAL IV SCH ×2 (09:13→21:55)
[2020-07-21] MEDS: INSULIN REGULAR, HUMAN 100 UNIT/1 ML 3ML VIAL SQ SCH ×4 (09:16→21:00)
[2020-07-21 10:55] LABS: EOSINOPHILS % (MANUAL) 6 % (0-7); LYMPHOCYTES % (MANUAL) 19 % (19-48); MONOCYTES % (MANUAL) 5 % (3.4-9.0); NEUTROPHILS % (MANUAL) 70 % (40-74)
[2020-07-21 10:56] LABS: ANISOCYTOSIS SLIGHT; PLATELET ESTIMATE MARKEDLY DECREASED; PLATELET MORPHOLOGY COMMENT NORMAL; RBC MORPHOLOGY COMMENT NORMAL
[2020-07-21] MEDS ORDERED: SODIUM CHLORIDE 0.9% 250ML 250 ML ONE (11:46)
[2020-07-21 12:00] VITALS: BP 138/60
--- NOTE | 2020-07-21 12:00 | NUR ---
pt plasma started pt tolerating well , will cont to monitor.
--- NOTE | 2020-07-21 12:30 | NUR ---
pt plasma finished, pt alert resp even and unlabored , no c/o pain no SOB. will cont to Monitor.
--- NOTE | 2020-07-21 12:35 | NUR ---
pt off unit for procedure.
--- NOTE | 2020-07-21 12:59 | NUR ---
Discontinuing PT services since patient is Mod I in functional mobility.Thank you Addendum: 07/21/20 at 1300 by Jeferson robbins PT Amended: Links added.
--- NOTE | 2020-07-21 13:39 | Diagnostic Imaging Report ---
PROCEDURE: Ultrasound-guided paracentesis Procedural Personnel Attending physician(s): Sharon Tsang MD Pre-procedure diagnosis: Ascites Post-procedure diagnosis: Unchanged Indication: Ascites with pain or pressure symptoms Additional clinical history: None Complications: No immediate complications. IMPRESSION: Ultrasound-guided paracentesis with drainage of 3350 mL of serous fluid. Plan: Resume care by clinical team. PROCEDURE SUMMARY: - Limited abdominal ultrasound - Ultrasound-guided paracentesis - Additional procedure(s): None PROCEDURE DETAILS: Pre-procedure Consent: Informed consent for the procedure including risks, benefits and alternatives was obtained and time-out was performed prior to the procedure. Preparation: The site was prepared and draped using maximal sterile barrier technique including cutaneous antisepsis. Anesthesia/sedation Level of anesthesia/sedation: None Initial abdominal ultrasound Initial abdominal ultrasound was performed. Findings: Moderate ascites. A safe window for paracentesis was identified. Paracentesis Local anesthesia was administered. The peritoneal cavity was accessed and fluid return confirmed position. Ascites was drained. The catheter was then removed, and a sterile bandage was applied. Paracentesis access technique: Real-time ultrasound guidance. Catheter placed: 5Fr Yueh Post-drainage ultrasound: No visible ascites Additional Details Additional description of procedure: None Equipment details: None Specimens removed: Abdominal fluid Estimated blood loss (mL): Minimal (<10cc) Standardized report: [email or web address] Attestation Signer name: Sharon Tsang MD I attest that I was present for the entire procedure. I reviewed the stored images and agree with the report as written. Signed by: Sharon Tsang MD on 07/21/2020 1:36 PM
--- NOTE | 2020-07-21 15:35 | NUR ---
pt return from for procedure, pt alert resp even and unlabored, no distress noted, will cont to monitor.
[2020-07-21 15:57] LABS: RBC,BODY FLUID 409 cells/uL; WBC,BODY FLUID 68 cells/uL
[2020-07-21 16:00] VITALS: BP 147/65
[2020-07-21 16:24] LABS: BODY FLUID APPEARANCE SL.CLOUDY; BODY FLUID COLOR STRAW; BODY FLUID TYPE PERITONEAL
[2020-07-21 17:16] LABS: LYMPHOCYTES,BODY FLUID 2 %; MONO/MACROPHG,BODY FLUID 61 %; NEUTROPHILS,BODY FLUID 36 %; OTHER CELLS,BODY FLUID 1 %
[2020-07-21] MEDS ORDERED: LIDOCAINE HCL 2% LOCAL INJ 5 ML SDV VIAL INJ ONE (19:31)
[2020-07-21] MEDS ORDERED: PROPOFOL IV EMULSION 10 MG/ML 20 ML VIAL ONE (19:31)
--- NOTE | 2020-07-21 19:46 | NUR ---
Report given to oncoming nurse, walking rounds complete, pt stable at shift change.
[2020-07-21 20:00] VITALS: BP 129/60
--- NOTE | 2020-07-21 20:56 | Operative Report ---
DATE OF PROCEDURE: 07/21/2020 SURGEON: Elmo Villarreal MD PROCEDURE: EGD with biopsies. INDICATIONS FOR EGD: Anemia, history of melena. MEDICATIONS: The patient was done under MAC, please see anesthesiologist's note. PROCEDURE IN DETAIL: With the patient in the left lateral decubitus position, a flexible fiberoptic Olympus gastroscope was introduced into the esophagus under direct visualization without any difficulty. The esophagus overall appeared to be within normal limits. There were no varices. The scope was then advanced with ease into the stomach and there were some patchy [id number] changes compatible with portal hypertensive gastropathy. There was no active bleeding or stigmata of recent hemorrhage. Pylorus was of normal contour and shape, was intubated with ease and the scope was advanced all the way to the second portion of the duodenum. There were some scalloping of the folds in the proximal second portion and biopsies were obtained to rule out sprue. The scope was then withdrawn back into the stomach and retroflexed, and mucosa overlying the fundus and the cardia appeared to be within normal limits. The scope was then straightened out, it was subsequently withdrawn, and the patient tolerated the procedure well. IMPRESSION: 1. Normal esophagus. 2. Gastropathy, portal hypertensive, [id number] patchy changes. 3. Rule out sprue. PLAN: Follow up histology. Follow H and H. Findings do not necessarily explain the patient's melena or anemia, might benefit from a colonoscopy. Elmo Villarreal MD [facility] /[id number] cc: Javi Guillen MD
--- NOTE | 2020-07-21 23:38 | NUR ---
Dr. Villarreal gave new telephone orders as follows: Place patient on Clear liquids, give Dulcolax 20 mg now and Dulcolax 20 mg 30 minutes after 1st dose. Give Magnesium Citrate at 0500 on 07/22/20. Complete Informed Consent for Colonoscopy procedure.
[2020-07-21] MEDS ORDERED: BISACODYL 5 MG TAB EC PO ONE (23:45)
[2020-07-22] VITALS (7 sets, daily range): BP systolic 101–152; BP diastolic 47–57
[2020-07-22] MEDS ORDERED: BISACODYL 5 MG TAB EC PO ONE (00:15)
--- NOTE | 2020-07-22 01:00 | NUR ---
Patient informed of diagnostic medical procedure---Colonoscopy and Clear liquid diet. Patient verbalized understanding and voluntarily signed "Disclosure and Consent" form.
[2020-07-22] MEDS ORDERED: CITRATE OF MAGNESIA 300ML BOTTLE PO ONE (05:00)
[2020-07-22] MEDS: OCTREOTIDE ACETATE 500 MCG in SODIUM CHLORIDE 0.9% 250ML 249 ML IV SCH ×2 (05:50→08:42)
[2020-07-22 06:36] LABS: EOSINOPHILS % 1.5 % (0.0-6.0); HEMATOCRIT 23.4 % (38.2-49.6); LYMPHOCYTES # (AUTO) 0.3 (1.0-3.2); LYMPHOCYTES % 11.9 % (18.0-39.1); MEAN CORPUSCULAR HEMOGLOBIN 32.9 pg (28-32); MEAN CORPUSCULAR HGB CONC 34.2 g/dL (31-35); MEAN CORPUSCULAR VOLUME 96.3 fL (81-99); MONOCYTES # (AUTO) 0.1 (0.2-0.8); MONOCYTES % 3.3 % (4.4-11.3); NEUTROPHILS # (AUTO) 2.2 (2.1-6.9); NEUTROPHILS % 82.9 % (38.7-80.0); RED BLOOD COUNT 2.43 x10e6/uL (4.3-5.7); RED CELL DISTRIBUTION WIDTH 14.5 % (11.7-14.4)
[2020-07-22 06:41] LABS: PLATELET COUNT 34 x10e3/uL (140-360)
--- NOTE | 2020-07-22 07:00 | NUR ---
BEDSIDE SHIFT REPORT RECEIVED FROM THE MANAGER BUSINESS SYSTEMS RN. EDUCATED PT ABOUT FALL PRECAUTIONS. PT VERBALIZED UNDERSTANDING. BED IS LOW AND LOCKED. SIDE RAILS X2. CALL LIGHT WITH IN EASY REACH. BED ALARM IS ON. ALL SAFETY MEASURES IN PLACE. PT DENIES NEEDS AT THIS TIME.
--- NOTE | 2020-07-22 07:00 | NUR ---
Patient resting comfortably. Walking rounds done. Bed-side shift report given to oncoming nurse.
[2020-07-22 07:03] LABS: ALBUMIN 2.1 g/dL (3.5-5.0); ALBUMIN/GLOBULIN RATIO 0.7 (0.8-2.0); ANION GAP 14.5 mmol/L (8-16); CALCIUM 7.8 mg/dL (8.4-10.2); CREATININE, SERUM 1.19 mg/dL (0.72-1.25); MAGNESIUM 1.7 MG/DL (1.3-2.1); POTASSIUM 4.5 mmol/L (3.5-5.1)
--- NOTE | 2020-07-22 07:22 | NUR ---
Mae Martins (DETASSELER) notified of critical platelet value of 34. No new order received.
[2020-07-22] MEDS: INSULIN REGULAR, HUMAN 100 UNIT/1 ML 3ML VIAL SQ SCH ×3 (07:30→16:30)
[2020-07-22] MEDS ORDERED: ONDANSETRON HCL INJ 2MG/ML 2ML 2 MG/ML VIAL IV PRN (07:45)
[2020-07-22] MEDS: PANTOPRAZOLE 40 MG 10ML VIAL IV SCH (08:23)
[2020-07-22] MEDS: SPIRONOLACTONE 25 MG TAB PO SCH ×2 (08:24→17:00)
[2020-07-22] MEDS: LEVOTHYROXINE SODIUM 50 MCG TAB PO SCH (08:25)
[2020-07-22] MEDS: METOPROLOL SUCCINATE 25 MG TAB XL PO SCH (08:25)
[2020-07-22] MEDS: FUROSEMIDE 40 MG TAB PO SCH (08:26)
[2020-07-22] MEDS: PROPRANOLOL HCL 10 MG TAB PO SCH ×2 (08:26→17:00)
--- NOTE | 2020-07-22 09:30 | NUR ---
PLATELET PHERESIS PER DR. NARAYAN. INFORMED THE SAME TO LAB.
[2020-07-22] MEDS ORDERED: CITRATE OF MAGNESIA 300ML BOTTLE PO SCH (10:00)
--- NOTE | 2020-07-22 11:30 | NUR ---
MULTIPLE ATTEMPTS TO START 20 G IV FOR IV PLATELETS. PT IS HARD STICK. INFORMED THE SAME TO MANAGER PROVIDER RELATIONS, FIRE AND SAFETY HELPER AND DR. NARAYAN. PT HAS CURRENTLY ON 22 G IV.
--- NOTE | 2020-07-22 12:00 | NUR ---
WANDY TO D/C PT PER DR. GUPTA
--- NOTE | 2020-07-22 12:30 | NUR ---
PT OFF UNIT FOR PROCEDURE IN SAFE CONDITION.
--- NOTE | 2020-07-22 14:20 | NUR ---
PT IS BACK TO THE UNIT FROM PACU. PT RECEIVED PLATELETS AT OR AND PACU PER THE TRANSFER REPORT. PT CAME WITH LEFT FORE ARM 20 G IV. PT DENIES NEEDS AT THIS TIME.
--- NOTE | 2020-07-22 14:21 | NUR ---
PT IS DROWSY. EASILY AROUSABLE. PT DENIES NEEDS AT THIS TIME.
--- NOTE | 2020-07-22 14:30 | Operative Report ---
DATE OF PROCEDURE: 07/22/2020 SURGEON: Elmo Villarreal MD PROCEDURE: Colonoscopy. INDICATIONS FOR COLONOSCOPY: Anemia. Findings on EGD did not necessarily explain the patient's anemia. MEDICATIONS: The patient was done under MAC, please see anesthesiologist's note. PROCEDURE IN DETAIL: With the patient in the left lateral decubitus position, a flexible fiberoptic Olympus colonoscope was inserted into the rectum with ease and advanced all the way to the cecum. The scope was then withdrawn slowly. Mucosa overlying the ascending, transverse, descending, and sigmoid revealed some diverticular disease. There were some varices noted in the rectum. The scope was then retroflexed into the distal rectum and moderate-sized internal hemorrhoids were noted, none of which was actively bleeding. The scope was then straightened out, it was subsequently withdrawn, and the patient tolerated the procedure well. IMPRESSION: 1. Pandiverticulosis. 2. Rectal varices. 3. Internal hemorrhoids, none actively bleeding. PLAN: Follow H and H. Initiate 2 g sodium diet. Elmo Villarreal MD [facility]SE /[id number] cc: Javi Guillen MD
[2020-07-22] MEDS ORDERED: PROPRANOLOL HCL10 MG PO (15:18)
[2020-07-22] MEDS ORDERED: FUROSEMIDE40 MG PO (15:18)
[2020-07-22] MEDS ORDERED: ALDACTONE25 MG PO (15:18)
[2020-07-22] MEDS ORDERED: POTASSIUM CHLO10 ME1 PO (15:18)
--- NOTE | 2020-07-22 15:45 | NUR ---
PT IS DROWSY. INFORMED THE SAME TO JUNE ORTEGA. NO NEW ORDERS RECEIVED.
--- NOTE | 2020-07-22 16:30 | NUR ---
PT IS AAOX3. PT DENIES NEEDS AT THIS TIME.
--- NOTE | 2020-07-22 16:45 | NUR ---
PT REFUSED INSULIN. PER THE PT, HE DOESN'T TAKE INSULIN AT HOME AND HE DOESN'T WANT ANY INSULIN.
--- NOTE | 2020-07-22 17:00 | NUR ---
PAGED EVIE LOPEZ, PT DAUGHTER AND UPDATED THE D/C PLAN AND INSTRUCTIONS. PT FAMILY DENIED FURTHER NEEDS.
--- NOTE | 2020-07-22 17:45 | NUR ---
PT DISCHARGED HOME SAFELY WITH FAMILY MEMBER. TELEMETRY AND IV'S REMOVED, TIP INTACT. DRESSING APPLIED. RX GIVEN. DISCHARGE INSTRUCTIONS GIVEN AND PATIENT VERBALIZED UNDERSTANDING. PT ESCORTED VIA WHEEL CHAIR WITH THE TECH TO THE PRIVATE AUTO AT THE FRONT ENTRANCE. PT DENIED FURTHER NEEDS.
[2020-07-22] MEDS ORDERED: LIDOCAINE HCL 2% LOCAL INJ 5 ML SDV VIAL INJ ONE (19:44)
[2020-07-22] MEDS ORDERED: PROPOFOL IV EMULSION 10 MG/ML 20 ML VIAL ONE (19:44)
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
== END 2020-07-22 18:02 | disposition home or self-care (01) | DRG 432 ==
LOC: ER 14:15 → ERHOLD 16:19 → MED/SURG2 18:01
PROVIDERS: ADMIT Internal Medicine; ATTEND Internal Medicine
PROC: 30230N1 Transfusion of Nonautologous Red Blood Cells into Peripheral Vein, Open Approach (ICD-10-PCS; principal; 2020-07-18)
PROC: 0DB98ZX Excision of Duodenum, Via Natural or Artificial Opening Endoscopic, Diagnostic (ICD-10-PCS; 2020-07-21)
PROC: 0W9G3ZZ Drainage of Peritoneal Cavity, Percutaneous Approach (ICD-10-PCS; 2020-07-21)
PROC: 0DJD8ZZ Inspection of Lower Intestinal Tract, Via Natural or Artificial Opening Endoscopic (ICD-10-PCS; 2020-07-22)
DX: K74.60 Unspecified cirrhosis of liver (principal); I81 Portal vein thrombosis; D62 Acute posthemorrhagic anemia; K76.6 Portal hypertension; R18.8 Other ascites; D63.8 Anemia in other chronic diseases classified elsewhere; D69.6 Thrombocytopenia, unspecified; K57.90 Diverticulosis of intestine, part unspecified, without perforation or abscess without bleeding; Z11.59 Encounter for screening for other viral diseases; E11.9 Type 2 diabetes mellitus without complications; E03.9 Hypothyroidism, unspecified; K62.89 Other specified diseases of anus and rectum; K64.8 Other hemorrhoids; K31.9 Disease of stomach and duodenum, unspecified; K31.89 Other diseases of stomach and duodenum
CPT/HCPCS: 36415; 43239; 45378; 49083; 71045; 74177; 80053; 80061; 81001; 82140; 82270; 82550; 82553; 82728; 82948; 83036; 83540; 83735; 83880; 84100; 84443; 84466; 84484; 85025; 85610; 85730; 86039; 86200; 86255; 86431; 86850; 86900; 86920; 87070; 87205; 88112; 88305; 89051; 93005; 99284; C1729; J1817; J1940; J2001; J2353; J2354; J2405; J7030; J7050; P9016; P9034; Q9967; U0002

== ENCOUNTER 2020-08-05 12:09 | Inpatient (IN) | payer MEDICARE, OTHER ==
[~2020-08-05] VITALS: Ht 167.6 cm; Wt 71.2 kg
[~2020-08-05 12:09] MED LIST: ALDACTONE25 MG PO; ASPIRIN81 MG PO; FOLIC ACID0.4 MG PO; FUROSEMIDE40 MG PO; GLIPIZIDE5 MG PO; LEVOTHYROXINE50 MCG PO; METFORMIN HCL500 MG PO; METHOTREXATE2.5 MG PO; METOPROLOL SUCC25 MG PO; POTASSIUM CHLO10 ME1 PO; PROPRANOLOL HCL10 MG PO; SIMVASTATIN40 MG PO
--- NOTE | 2020-08-05 12:50 | Emergency Department Note ---
History of Present Illnes History of Present Illness Chief Complaint: General Medicine Complaints History of Present Illness This is a 89 year old male Chief Complaint Comment brought in via ems for "increasing weakness" per family. Patient has no complaints himself. 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: n/a History limited by: abscense of a caregiver Pathology Collector Required: No Onset (how long ago): week(s) Location: Generalized Quality: Weakness Radiation: Reports non-radiation Severity: mild Onset quality: gradual Duration (how long): week(s) Timing of current episode: constant Progression: worsening Chronicity: new Context: Denies recent illness, Denies recent surgery Relieving factors: none Exacerbating factors: none Associated symptoms: Reports denies other symptoms Treatments prior to arrival: none Past Medical/Family History Physician Review I have reviewed the patient's past medical and family history. Any updates have been documented here. Past Medical History Recent Fever: No Clinical Suspicion of Infectio: No New/Unexplained Change in Ment: No Past Medical History: Hypertension, Diabetes, Anemia Other Surgery: EAR SURGERY Social History Physically hurt or threatened: No Other Last Tetanus: UNKNOWN Review of Systems Review of Systems Constitutional: Reports as per HPI EENTM: Reports no symptoms Cardiovascular: Reports no symptoms Respiratory: Reports no symptoms Gastrointestinal: Reports no symptoms Genitourinary: Reports no symptoms Musculoskeletal: Reports no symptoms Integumentary: Reports no symptoms Neurological: Reports no symptoms Psychological: Reports no symptoms Endocrine: Reports no symptoms Hematological/Lymphatic: Reports no symptoms Physical Exam Related Data Allergies: Coded Allergies: No Known Allergies (Unverified , 12/10/19) Triage Vital Signs Vital Signs Date Time Temp Pulse Resp B/P (MAP) Pulse Ox O2 Delivery O2 Flow Rate FiO2 08/05/20 12:10 98.7 95 16 120/55 100 Room Air Vital signs reviewed: Yes Physical Exam CONSTITUTIONAL Constitutional: Present well-developed, Present well-nourished HENT HENT: Present normocephalic, Present atraumatic, Present oropharynx clear/moist, Present nose normal HENT L/R: Present left ext ear normal, Present right ext ear normal EYES Eyes: Reports PERRL, Reports conjunctivae normal NECK Neck: Present ROM normal PULMONARY Pulmonary: Present effort normal, Present breath sounds normal CARDIOVASCULAR Cardiovascular: Present regular rhythm, Present heart sounds normal, Present capillary refill normal, Present normal rate GASTROINTESTINAL Abdominal: Present soft, Present nontender, Present bowel sounds normal GENITOURINARY Genitourinary: Present exam deferred SKIN Skin: Present warm, Present dry MUSCULOSKELETAL Musculoskeletal: Present ROM normal NEUROLOGICAL Neurological: Present alert, Present oriented x 3, Present no gross motor or sensory deficits PSYCHOLOGICAL Psychological: Present mood/affect normal, Present judgement normal Assessment & Plan Medical Decision Making MDM 89 y.o M presents for weakness. Work up shows Pancytopenia. Discussed with Dr. Pulliam and will admit to her. He was given 2U PLT Reassessment Reassessment time: 14:32 Reassessment NAD Assessment & Plan Final Impression: (1) Pancytopenia Depart Disposition: ADMITTED Last Vital Signs Date Time Temp Pulse Resp B/P (MAP) Pulse Ox O2 Delivery O2 Flow Rate FiO2 08/05/20 12:10 98.7 95 16 120/55 100 Room Air Home Meds Active Scripts Potassium Chloride (POTASSIUM CHLORIDE) 10 Meq Tab.er.prt, 10 MEQ PO Q48HRS for 14 Days, #7 TAB 0 Refills Prov:JUNE SALAS NP 07/22/20 Spironolactone (ALDACTONE) 25 Mg Tablet, 50 MG PO BID for 14 Days, #30 TAB 0 Refills Prov:JUNE SALAS NP 07/22/20 Propranolol Hcl (PROPRANOLOL HCL) 10 Mg Tablet, 15 MG PO BID for 14 Days, #30 TAB 0 Refills Prov:JUNE SALAS NP 07/22/20 Furosemide (FUROSEMIDE) 40 Mg Tablet, 40 MG PO DAILY for 14 Days, #14 TAB 0 Refills Prov:JUNE SALAS NP 07/22/20 Reported Medications Aspirin (ASPIRIN) 81 Mg Tab.chew 07/18/20 Simvastatin (SIMVASTATIN) 40 Mg Tablet, 40 MG PO 2100, #30 TAB 07/18/20 Levothyroxine Sodium (LEVOTHYROXINE SODIUM) 50 Mcg Tablet, 25 MCG PO DAILY, #30 TAB 07/18/20 Folic Acid (FOLIC ACID) 0.4 Mg Tablet, 1 TAB PO DAILY 07/18/20 Methotrexate Sodium (METHOTREXATE) 2.5 Mg Tablet, 2.5 MG PO DAILY, #30 TAB 07/18/20 Metoprolol Succinate (METOPROLOL SUCCINATE) 25 Mg Tab.er.24h, 25 MG PO DAILY 07/18/20 Glipizide (GLIPIZIDE) 5 Mg Tablet, 10 MG PO DAILY, TAB 07/18/20 Metformin Hcl (METFORMIN HCL) 500 Mg Tablet, 500 MG PO BID, #60 TAB 07/18/20 MARGIE MEJIA MD Aug 05, 2020 12:50
--- NOTE | 2020-08-05 13:25 | Diagnostic Imaging Report ---
EXAM: CHEST SINGLE (PORTABLE) DATE: 08/05/2020 12:45 PM INDICATION: Weakness COMPARISON: 07/19/2020 FINDINGS: Lung volumes are low. The trachea is midline. The lungs are symmetrically expanded without evidence for large focal consolidation, pneumothorax, or significant pleural effusion. The cardiomediastinal silhouette appears magnified by technique but otherwise unremarkable. Mediastinal contours are within normal limits. Atherosclerotic calcifications are noted within the aortic arch. No acute osseous abnormality is identified. IMPRESSION: No acute cardiopulmonary process identified. Signed by: Dr. Noah Weeks MD on 08/05/2020 1:22 PM
[2020-08-05 13:43] LABS: LYMPHOCYTES # (AUTO) 0.2 (1.0-3.2); LYMPHOCYTES % 12.4 % (18.0-39.1); MEAN CORPUSCULAR HEMOGLOBIN 31.6 pg (28-32); MEAN CORPUSCULAR VOLUME 90.2 fL (81-99); MONOCYTES % 1.5 % (4.4-11.3); NEUTROPHILS # (AUTO) 1.1 (2.1-6.9); NEUTROPHILS % 78.8 % (38.7-80.0); RED BLOOD COUNT 2.25 x10e6/uL (4.3-5.7); RED CELL DISTRIBUTION WIDTH 16.3 % (11.7-14.4)
[2020-08-05 13:53] LABS: HEMOGLOBIN 7.1 g/dL (14.0-18.0)
[2020-08-05 13:54] LABS: HEMATOCRIT 20.3 % (38.2-49.6); PLATELET COUNT 5 x10e3/uL (140-360)
[2020-08-05 13:59] LABS: INR 1.48; PROTHROMBIN TIME 18.7 seconds (11.9-14.5)
[2020-08-05 14:06] LABS: ALBUMIN 2.4 g/dL (3.5-5.0); ALBUMIN/GLOBULIN RATIO 0.8 (0.8-2.0); ANION GAP 18.3 mmol/L (8-16); CALCIUM 7.3 mg/dL (8.4-10.2); CREATININE, SERUM 3.24 mg/dL (0.72-1.25); POTASSIUM 4.3 mmol/L (3.5-5.1)
[2020-08-05] MEDS ORDERED: SODIUM CHLORIDE 0.9% 1000ML 1,000 ML ONE (14:09)
[2020-08-05 14:18] LABS: BILIRUBIN,URINE NEGATIVE (NEGATIVE); CLARITY,URINE SL CLOUDY (CLEAR); COLOR,URINE YELLOW (YELLOW); KETONES,URINE NEGATIVE (NEGATIVE); LEUKOCYTE ESTERASE ,URINE NEGATIVE (NEGATIVE); NITRITE,URINE NEGATIVE (NEGATIVE); PROTEIN,URINE DIPSTICK 2+ (NEGATIVE); URINE UROBILINOGEN 0.2 mg/dL (0.2 - 1)
[2020-08-05 14:20] LABS: HYPERSEGMENTED NEUTROPHILS FEW; LYMPHOCYTES % (MANUAL) 6 % (19-48); MONOCYTES % (MANUAL) 1 % (3.4-9.0); NEUTROPHILS % (MANUAL) 93 % (40-74); OVALOCYTES MODERATE
[2020-08-05 14:21] LABS: ELLIPTOCYTE, RBC SLIGHT; RBC MORPHOLOGY COMMENT ABNORMAL; TEAR DROP CELLS FEW
[2020-08-05 14:22] LABS: PLATELET ESTIMATE MARKEDLY DECREASED; PLATELET MORPHOLOGY COMMENT NORMAL
--- NOTE | 2020-08-05 14:22 | NUR ---
maurice 56-amp of d50 pushed
[2020-08-05 14:23] LABS: ANISOCYTOSIS SLIGHT
[2020-08-05] MEDS ORDERED: DEXTROSE 50% SYRINGE 50 ML IV ONE (14:24)
[2020-08-05 14:29] LABS: AMORPHOUS SEDIMENT,URINE MODERATE (FEW); BACTERIA,URINE FEW /HPF; EPITHELIAL CELLS,URINE RARE /LPF; MUCUS,URINE FEW (RARE); WBC,URINE (MAN) 0-5 /HPF (0-5)
--- NOTE | 2020-08-05 14:44 | Diagnostic Imaging Report ---
Examination: CT head without contrast Clinical Indication: Weakness. Technique: Transaxial noncontrast images from the skull base through the vertex were obtained. Sagittal and coronal reformatted images were done. Dose modulation, iterative reconstruction, and/or weight based adjustment of the mA/kV was utilized to reduce the radiation dose to as low as reasonably achievable. Comparison: None. Findings: Scalp: No abnormalities. Bones: Intact. No fractures. No blastic or lytic lesions. Brain sulci: Appropriate for patient's age. Ventricles: Normal in size and configuration. No hydrocephalus. . Extra-axial space: No abnormalities. Parenchyma: There are confluent areas of low-attenuation within subcortical and periventricular white matter, nonspecific, but could represent microvascular ischemic disease. No masses, hemorrhage, or acute or chronic cortical based vascular insults. Suprasellar region: No abnormalities. Craniocervical junction: The foramen magnum is patent. No Chiari one malformation. Incidental findings: Opacified left maxillary sinus with adjacent osteitis. Atherosclerotic calcification of the cavernous and supraclinoid internal carotid and V4 segments of the bilateral vertebral arteries. Impression: 1. No acute intracranial finding. 2. 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 Signed by: Dr. Rebekah Ventura M.D. on 08/05/2020 2:41 PM
--- OUTSIDE RECORDS SUMMARY | 2020-08-05 15:22 | XMS REPORT | Continuity of Care Document ---
Author Author [facility] t Organization [facility] Address [address] [place] [address] Phone Unavailable Care Team Providers Care Public Relations Account Executive Name Role Phone ELEUTERIO REED, MD JEFFERS PCP Unavailable Nicolette Kowalski Attphys Unavailable KILLAMCHINO Attphys Unavailable WILLIEHIRALESSANDRA Attphys Unavailable BOCCARDO, ELISSA Admphys Unavailable KILLJAVED SOLOALD Admphys Unavailable Payers Payer Name Policy Type Policy Number Effective Date Expiration Date Moni Patel Medicare Replacement [id number] 2014 00:00:00 [facility] Problems Condition Name Condition Details Condition Category Status Onset Date Resolution Date Last Treatment Date Treating Clinician Comments Source Anemia Problem Active [facility] Thrombocytopenia Problem Active [facility] Allergies, Adverse Reactions, Alerts This patient has no known allergies or adverse reactions. Social History Social Habit Start Date Stop Date Quantity Comments Source Sex Assigned At 1930 00:00:00 1930 00:00:00 Male [facility] Medications Ordered Medication Name Filled Medication Name Start Date Stop Da te Current Medication? Ordering Clinician Indication Dosage Frequency Signature (SIG) Comments Components Source Furosemide Furosemide 2020-07-22 15:18:00 Yes 40 Dodie ly [facility] Potassium Chloride Potassium Chloride 2020-07-22 15:18:00 Yes 10 Q48hrs [facility] Propranolol Hcl Propranolol Hcl 2020-07-22 15:18:00 Yes 15 Twice A Day [facility] Spironolactone (Aldactone) 25 Mg TABLET Spironolactone ([place] ctone) 25 Mg TABLET 2020-07-22 15:18:00 Yes 50 Twice A Day [facility] Aspirin Aspirin Yes [facility] Folic Acid Folic Acid Yes 1 Daily [facility] Glipizide Glipizide Yes 10 Daily [facility] Levothyroxine Sodium Levothyroxine Sodium Yes 25 Daily [facility] Metformin Hcl Metformin Hcl Yes 500 Twice A Day [facility] Methotrexate Sodium (Methotrexate) 2.5 Mg TABLET Metho trexate Sodium (Methotrexate) 2.5 Mg TABLET Yes 2.5 Daily [facility] Metoprolol Succinate Metoprolol Succinate Yes 25 Daily [facility] Simvastatin Simvastatin Yes 40 Today At 9:00PM [facility] Vital Signs Vital Name Observation Time Observation Value Comments Source Body Temperature 2020-07-22 15:44:00 98.8 [degF] [facility] BMI (Body Mass Index) 2020-07-19 02:49:00 30.0 kg/m2 [facility] Weight 2020-07-18 14:11:00 175 [lb_av] [facility] Procedures Procedure Date / Time Performed Performing Clinician Mariana emil US guided paracentesis 2020-07-21 00:00:00 [facility] Computed tomography of abdomen and pelvis with contrast 00:00:00 [facility] X-ray of chest, two views 2019-12-10 00:00:00 ALESSANDRA GUTIERREZ [facility] Plan of Care Planned Activity Planned Date Details Comments Source Instructions Anemia [facility] Instructions Cirrhosis [facility] Instructions Diabetes and Diet [facility] Instructions Hypertension [facility] Encounters Start Date/Time End Date/Time Encounter Type Admission Type [facility] Care Department Encounter ID Source 2020-07-18 16:19:00 2020-07-22 18:02:00 Discharged Inpatient 1 HOMAR CHINO [facility] [id number] [facility] 2019-12-10 06:32:00 2019-12-10 10:15:00 Departed Emergency Room 1 ALESSANDRA GUTIERREZ [facility] [id number] [facility] I [facility] Results Test Description Test Time Test Comments Results Result Comments Source CT BRAIN WO 2020-08-05 14:40:00 [facility] [address] [address] Patient Name: SHERIE HEATON MR #: [id number] : 1930 Age/Sex: 89/M Req #: [id number] Adm Physician: Ordered by: Margie Kowalski MD Report #: [id number] Location: ER Room/Bed: Procedure: [id number] CT/CT BRAIN WO Exam Date: 08/05/20 Exam Time: 1245 REPORT STATUS: Signed Examination: CT head without contrast Clinical Indication: Weakness. Technique: Transaxial noncontrast images from the skull base through the vertex were obtained. Sagittal and coronal reformatted images were done. Dose modulation, iterative reconstruction, and/or weight based adjustment of the mA/kV was utilized to reduce the radiation dose to as low as reasonably achievable. Comparison: None. Findings: Scalp: No abnormalities. Bones: Intact. No fractures. No blastic or lytic lesions. Brain sulci: Appropriate for patient's age. Ventricles: Normal in size and configuration. No hydrocephalus. . Extra- axial space: No abnormalities. Parenchyma: There are confluent areas of low-attenuation within subcortical and periventricular white matter, nonspecific, but could represent microvascular ischemic disease. No masses, hemorrhage, or acute or chronic cortical based vascular insults. Suprasellar region: No abnormalities. Craniocervical junction: The foramen magnum is patent. No Chiari one malformation. Incidental findings: Opacified left maxillary sinus with adjacent osteitis. Atherosclerotic calcification of the cavernous and supraclinoid internal carotid and V4 segments of the bilateral vertebral arteries. Impression: 1. No acute intracranial finding. 2. 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 Signed by: Dr. Jerrica Ventura M.D. on 08/05/2020 2:41 PM Dictated By: JERRICA GRACIA MD 1441 Transcribed By: JIMMY on 08/05/20 1441 COPY TO: MARGIE KOWALSKI MD CHEST SINGLE (PORTABLE) 2020-08-05 13:20:[address] [address] Patient Name: SHERIE HEATON MR #: [id number] : 1930 Age/Sex: 89/M Req #: [id number] Adm Physician: Ordered by: Margie Kowalski MD Report #: [id number] Location: ER Room/Bed: Procedure: [id number] DX/CHEST SINGLE (PORTABLE) Exam Date: 08/05/20 Exam Time: 1245 REPORT STATUS: Signed EXAM: CHEST SINGLE (PORTABLE) DATE: 08/05/2020 12:45 PM INDICATION: Weakness COMPARISON: 07/19/2020 FINDINGS: Lung volumes are low. The trachea is midline. The lungs are symmetrically expanded without evidence for large focal consolidatio n, pneumothorax, or significant pleural effusion. The cardiomediastinal silhouette appears magnified by technique but otherwise unremarkable. Mediastinal contours are within normal limits. Atherosclerotic calcifications are noted within the aortic arch. No acute osseous abnormality is identified. IMPRESSION: No acute cardiopulmonary process identified. Signed by: Dr. Noah Weeks MD on 08/05/2020 1:22 PM Dictated By: NOAH WEEKS MD 1322 Transcribed By: JIMMY on 08/05/201321 COPY TO: MARGIE KOWALSKI MD Capillary blood glucose measurement by glucometer (mas s/volume) 2020-07-22 11:16:00 Test Item Bedside Glucose (test code = 25015-9) 153 70-120 Meter ID: [id number] Health AllenBlood leukocytes automated count (number/volume)2020-07-22 05:30:00* Test Item Value Reference Range Interpretation Comments White Blood Count (test code = 6690-2) 2.70 4.8-10.8 [facility] erythrocytes automated count (number/volume)2020-07-22 05:30:00* Test Item Value Reference Range Interpretation Comments Red Blood Count (test code = 789-8) 2.43 4.3-5.7 [facility] hemoglobin measurement (moles/volume)2020-07-22 05:30:00* Test Item Value Reference Range Interpretation Comments Hemoglobin (test code = 87534-4) 8.0 14.0-18.0 [facility] AllenAutomated blood hematocrit (volume fraction)2020-07-22 05:30:00* Test Item Value Reference Range Interpretation Comments Hematocrit (test code = 4544-3) 23.4 38.2-49.6 [facility] AllenAutomated erythrocyte mean corpuscular kmbyzv9859-38-83 05:30:00* Test Item Value Reference Range Interpretation Comments Mean Corpuscular Volume (test code = 787-2) 96.3 81-99 [facility] AllenAutomated erythrocyte mean corpuscular hemoglobin (mass per erythrocyte)2020-07-22 05:30:00* Test Item Value Reference Range Interpretation Comments Mean Corpuscular Hemoglobin (test code = 785-6) 32.9 28-32 [facility] AllenAutomated erythrocyte mean corpuscular hemoglobin concentration measurement (mass/volume)2020-07-22 05:30:00* Test Item Value Reference Range Interpretation Comments Mean Corpuscular Hemoglobin Concent (test code = 786-4) 34.2 31-35 [facility] AllenRDW TsgHt-Vfj8492-22-26 05:30:00* Test Item Value Reference Range Interpretation Comments Red Cell Distribution Width (test code = 38660-0) 14.5 11.7 -14.4 [facility] AllenAutomated blood platelet count (count/volume)2020-07-22 05:30:00* Test Item Value Reference Range Interpretation Comments Platelet Count (test code = 777-3) 34 140-360 Results repeated and called to CHINA CROW RN at 0639 on 07/22/20 by Aman Hilliard. Read back and verified.[facility] Automated blood segmented neutrophil count as percentage of total leukocytes 2020-07-22 05:30:00* Test Item Value Reference Range Interpretation Comments Neutrophils (%) (Auto) (test code = 89240-5) 82.9 38.7-80.0 [facility] AllenAutomated blood lymphocyte count as percentage ot total wxdoyywwyg6579-58-50 05:30:00* Test Item Value Reference Range Interpretation Comments Lymphocytes (%) (Auto) (test code = 736-9) 11.9 18.0-39.1 [facility] AllenAutomated blood monocyte count as percentage of total igfpwkqemy6882-99-29 05:30:00* Test Item Value Reference Range Interpretation Comments Monocytes (%) (Auto) (test code = 5905-5) 3.3 4.4-11.3 [facility] AllenAutomated blood eosinophil count as percentage of total mfkmeqvtbi8267-19-85 05:30:00* Test Item Value Reference Range Interpretation Comments Eosinophils (%) (Auto) (test code = 713-8) 1.5 0.0-6.0 [facility] AllenAutomated blood basophil count as percentage of total byztswygif3693-15-01 05:30:00* Test Item Value Reference Range Interpretation Comments Basophils (%) (Auto) (test code = 706-2) 0.0 0.0-1.0 [facility] AllenFluoroscopic procedure less than one hour wdqxuyvk0017-20-68 05:30:00* Test Item Value Reference Range Interpretation Comments IM GRANULOCYTES % (test code = IM GRANULOCYTES %) 0.4 0.0- 1.0 [facility] AllenAutomated blood neutrophil count 2020-07-22 05:30:00* Test Item Value Reference Range Interpretation Comments Neutrophils # (Auto) (test code = 751-8) 2.2 2.1-6.9 [facility]Blood lymphocytes count (number/volume) 2020-07-22 05:30:00* Test Item Value Reference Range Interpretation Comments Lymphocytes # (Auto) (test code = 35151-3) 0.3 1.0-3.2 [facility] AllenBlood monocytes automated count (number/volume)2020-07-22 05:30:00* Test Item Value Reference Range Interpretation Comments Monocytes # (Auto) (test code = 742-7) 0.1 0.2-0.8 [facility] AllenAutomated blood eosinophil count 2020-07-22 05:30:00* Test Item Value Reference Range Interpretation Comments Eosinophils # (Auto) (test code = 711-2) 0.0 0.0-0.4 [facility] AllenAutomated blood basophil count (count/volume)2020-07-22 05:30:00* Test Item Value Reference Range Interpretation Comments Basophils # (Auto) (test code = 704-7) 0.0 0.0-0.1 [facility] AllenFluoroscopic procedure less than one hour zegxncag6366-54-87 05:30:00* Test Item Value Reference Range Interpretation Comments Absolute Immature Granulocyte (auto (rich t code = Absolute Immature Granulocyte (auto) 0.01 0-0.1 [facility] sodium measurement (moles/volume)2020-07-22 05:30:00* Test Item Value Reference Range Interpretation Comments Sodium Level (test code = 2951-2) 139 136-145 [facility] potassium measurement (moles/volume)2020-07-22 05:30:00* Test Item Value Reference Range Interpretation Comments Potassium Level (test code = 2823-3) 4.5 3.5-5.1 [facility] chloride measurement (moles/volume)2020-07-22 05:30:00* Test Item Value Reference Range Interpretation Comments Chloride Level (test code = 2075-0) 110 98-107 [facility] plasma carbon dioxide, total measurement (moles/volume)2020-07-22 05:30:00* Test Item Value Reference Range Interpretation Comments Carbon Dioxide Level (test code = 2028-9) 19 22-29 [facility] or plasma anion jum1419-26-29 05:30:00* Test Item Value Reference Range Interpretation Comments Anion Gap (test code = 01471-4) 14.5 8-16 [facility] plasma urea nitrogen measurement (mass/volume)2020-07-22 05:30:00* Test Item Value Reference Range Interpretation Comments Blood Urea Nitrogen (test code = 3094-0) 28 7-26 [facility] plasma creatinine measurement (mass/volume)2020-07-22 05:30:00* Test Item Value Reference Range Interpretation Comments Creatinine (test code = 2160-0) 1.19 0.72-1.25 [facility] or plasma urea nitrogen/creatinine mass qonps7969-20-62 05:30:00* Test Item Value Reference Range Interpretation Comments BUN/Creatinine Ratio (test code = 3097-3) 24 6-25 [facility] AllenEstimated glomerular filtration rate (GFR) jhtqygqhwzoxq9002-86-69 05:30:00* Test Item Value Reference Range Interpretation Comments Estimat Glomerular Filtration Rate (test code = 316333990) 58 >60 Ranges were taken from the National Kidney Disease Education Program and the [facility] literature.Reference ranges:60 or greater: Mtmwri31-05 ( for 3 consecutive months): Chronic kidney disease 15 or less: Kidney failureTexas Health AllenGlucose peouxyhwwbd8104-42-80 05:30:00* Test Item Value Reference Range Interpretation Comments Glucose Level (test code = UDZ6833) 127 74-118 [facility] or plasma calcium measurement (mass/volume)2020-07-22 05:30:00* Test Item Value Reference Range Interpretation Comments Calcium Level (test code = 66141-2) 7.8 8.4-10.2 [facility] or plasma magnesium measurement (mass/volume)2020-07-22 05:30:00* Test Item Value Reference Range Interpretation Comments Magnesium Level (test code = 36204-6) 1.7 1.3-2.1 [facility] or plasma total bilirubin measurement (mass/volume)2020-07-22 05:30:00* Test Item Value Reference Range Interpretation Comments Total Bilirubin (test code = 1975-2) 1.8 0.2-1.2 [facility] AllenFluoroscopic procedure less than one hour hpmxmxil9167-08-58 05:30:00* Test Item Value Reference Range Interpretation Comments Aspartate Amino Transf (AST/SGOT) (test code = Aspartate Amino Transf (AST/SGOT)) 55 5-34 [facility]er[facility] or plasma alanine aminotransferase measurement (enzymatic activity/volume)2020-07-22 05:30:00* Test Item Value Reference Range Interpretation Comments Alanine Aminotransferase (ALT/SGPT) (test code = 1742-6) 49 0-55 [facility] or plasma protein measurement (mass/volume)2020-07-22 05:30:00* Test Item Value Reference Range Interpretation Comments Total Protein (test code = 2885-2) 5.2 6.5-8.1 [facility] plasma albumin measurement (mass/volume)2020-07-22 05:30:00* Test Item Value Reference Range Interpretation Comments Albumin (test code = 1751-7) 2.1 3.5-5.0 [facility] AllenPlasma globulin measurement (mass/volume) 2020-07-22 05:30:00* Test Item Value Reference Range Interpretation Comments Globulin (test code = 13374-8) 3.1 2.3-3.5 [facility] plasma albumin/globulin mass vwryl5673-41-22 05:30:00* Test Item Value Reference Range Interpretation Comments Albumin/Globulin Ratio (test code = 1759-0) 0.7 0.8-2.0 [facility] or plasma alkaline phosphatase measurement (enzymatic activity/volume)2020-07-22 05:30:00* Test Item Value Reference Range Interpretation Comments Alkaline Phosphatase (test code = 6768-6) 138 40-150 [facility] AllenUS GUIDED AFICZXKVOWID5200-92-92 13:35:00 [facility] [address] [place] [address] Patient Name: SHERIE HEATON MR #: [id number] : 1930 Age/Sex: 89/M Req #: [id number] Adm Physician: CHINO GRAF MD Ordered by: COLTON NARAYAN MD Repor t #: [id number] [facility] Room/Bed : [facility] Procedure: US/US GUIDED PAR ACENTESIS Exam Date: 07/21/20 Exam Time: 1222 REPORT STATUS: Signed PROCEDURE: Ultra sound-guided paracentesis Procedural Personnel Attending physician(s): Nayeli Carrizales MD Pre-procedure diagnosis: Ascites Post-procedure diagnosis: U nchanged Indication: Ascites with pain or pressure symptoms Additional clini cali history: None Complications: No immediate complications. IMPRESSIO N: Ultrasound-guided paracentesis with drainage of 3350 mL of serous fluid. Plan: Resume care by clinical team. PROCEDURE SUMMARY: - Limited abdominal ultrasound - Ultrasound-guided paracentesis - Additional procedure(s): None PROCEDURE DETAILS: Pre-procedure Consent: Informed consent for the p rocedure including risks, benefits and alternatives was obtained and time-out was performed prior to the procedure. Preparation: The site was prepared and d raped using maximal sterile barrier technique including cutaneous antisepsis. Anesthesia/sedation Level of anesthesia/sedation: None Initial abdom inal ultrasound Initial abdominal ultrasound was performed. Findings: Modera te ascites. A safe window for paracentesis was identified. Paracentesis L ocal anesthesia was administered. The peritoneal cavity was accessed and fluid return confirmed position. Ascites was drained. The catheter was then removed, and a sterile bandage was applied. Paracentesis access technique: Real-time ultrasound guidance. Catheter placed: 5Fr Dasha Post-drainage ultrasound: No visible ascites Additional Details Additional description of procedure: N one Equipment details: None Specimens removed: Abdominal fluid Estimated b lood loss (mL): Minimal (<10cc) Standardized report: SIR_Paracentesis_v3 Attestation Signer name: Erin Carrizales MD I attest that I was present for the entire procedure. I reviewed the stored images and agree with the report as written. Signed by: Erin Carrizales MD on 07/21/2020 1:36 PM Dictated By: ERIN CARRIZALES MD 1336 Transcribed By: JIMMY on 07/21/20 1336 COPY TO: COLTON NARAYAN MD Specimen source identification of body [id number] 12:22:00* Test Item Value Reference Range Interpretation Comments Body Fluid Type (test code = 86710-2) PERITONEAL [facility] AllenEvaluation of color of body fluid 2020-07-21 12:22:00* Test Item Value Reference Range Interpretation Comments Body Fluid Color (test code = 6824-7) STRAW [facility] AllenDetermination of appearance of body fluid 2020-07-21 12:22:00* Test Item Value Reference Range Interpretation Comments Body Fluid Appearance (test code = 9335-1) SL.CLOUDY [facility] body fluid leukocytes count (number/volume)2020-07-21 12:22:00* Test Item Value Reference Range Interpretation Comments Body Fluid WBC (test code = 6743-9) 68 [facility] body fluid erythrocytes count (number/volume)2020-07-21 12:22:00* Test Item Value Reference Range Interpretation Comments Body Fluid RBC (test code = 6741-3) 409 [facility] body fluid neutrophils/100 efgqvcsvdu6158-96-56 12:22:00* Test Item Value Reference Range Interpretation Comments Body Fluid Neutrophils (test code = 23973-9) 36 [facility]Body fluid lymphocyte cuvmk8527-18-47 12:22:00* Test Item Value Reference Range Interpretation Comments Body Fluid Lymphocytes (test code = 94485992) 2 [facility] AllenBody fluid monocyte kyalh2255-11-42 12:22:00* Test Item Value Reference Range Interpretation Comments Body Fluid Monocytes (test code = 42772-4) 61 [facility] fluid other cells manual count 2020-07-21 12:22:00* Test Item Value Reference Range Interpretation Comments Body Fluid Other Cells (test code = 572229433) 1 MESOTHELIAL CELLTexas Health AllenTotal cell count 2020-07-21 12:22:00* Test Item Value Reference Range Interpretation Comments Body Fluid Total Cells Counted (test code = 42307-6) 100 [facility] AllenFluoroscopic procedure less than one hour egotibdc3946-88-53 06:15:00* Test Item Value Reference Range Interpretation Comments Differential Total Cells Counted (test code = Differen tial Total Cells Counted) 100 [facility] AllenManual blood neutrophils/100 leukocytes 2020-07-21 06:15:00* Test Item Value Reference Range Interpretation Comments Neutrophils % (Manual) (test code = 67387-3) 70 40-74 [facility] blood lymphocytes/100 leukocytes 2020-07-21 06:15:00* Test Item Value Reference Range Interpretation Comments Lymphocytes % (Manual) (test code = 737-7) 19 19-48 [facility] AllenManual blood monocytes/100 leukocytes 2020-07-21 06:15:00* Test Item Value Reference Range Interpretation Comments Monocytes % (Manual) (test code = 744-3) 5 3.4-9.0 [facility] AllenManual blood eosinophil count as percentage of total ekueqjjfbu0428-00-39 06:15:00* Test Item Value Reference Range Interpretation Comments Eosinophils % (Manual) (test code = 714-6) 6 0-7 [facility] AllenBlood platelets count by estimate (number/volume)2020-07-21 06:15:00* Test Item Value Reference Range Interpretation Comments Platelet Estimate (test code = 08299-6) MARKEDLY DECREASED [facility] AllenPlatelet isfjtymioy1990-47-18 06:15:00* Test Item Value Reference Range Interpretation Comments Platelet Morphology Comment (test code = 09747-7) NORMAL [facility] AllenBlood anisocytosis detection by light jxmxutzmro9691-19-47 06:15:00* Test Item Value Reference Range Interpretation Comments Anisocytosis (test code = 702-1) SLIGHT [facility] AllenRBC xtqijmubsa2036-68-07 06:15:00* Test Item Value Reference Range Interpretation Comments Red Cell Morphology Comment (test code = 6742-1) NORMAL [facility] AllenFluoroscopic procedure less than one hour yufvfoon1659-26-61 06:15:00* Test Item Value Reference Range Interpretation Comments Hemoglobin A1c Percent (test code = Hemoglobin A1c Percent) 5.1 4.0-7.0 [facility] AllenPhosphorus ubajrqikske0099-50-72 06:15:00 * Test Item Value Reference Range Interpretation Comments Phosphorus Level (test code = LLR0162) 2.0 2.3-4.7 [facility] triglyceride measurement (mass/volume)2020-07-21 06:15:00* Test Item Value Reference Range Interpretation Comments Triglycerides Level (test code = 2571-8) 90 0-149 [facility] plasma cholesterol measurement (mass/volume)2020-07-21 06:15:00* Test Item Value Reference Range Interpretation Comments Cholesterol Level (test code = 2093-3) 63 0-199 Less than 200 mg/dL Low Ixvf303 - 239 mg/dL Borderline Bfsf898 m g/dl and greater High Risk [facility] plasma cholesterol in LDL measurement (mass/volume) 2020-07-21 06:15:00* Test Item Value Reference Range Interpretation Comments LDL Cholesterol (test code = 2089-1) 22 60-130 [facility] plasma cholesterol in HDL measurement (mass/volume)2020-07-21 06:15:00* Test Item Value Reference Range Interpretation Comments HDL Cholesterol (test code = 2085-9) 23 40-60 [facility] or plasma total cholesterol/cholesterol in HDL mass zwonl5441-62-47 06:15:00* Test Item Value Reference Range Interpretation Comments Cholesterol/HDL Ratio (test code = 9830-1) 2.7 3.9-4.7 [facility] or plasma thyrotropin measurement by detection limit <= 0.005 miu/l (units/volume)2020-07-21 06:15:00* Test Item Value Reference Range Interpretation Comments Thyroid Stimulating Hormone (TSH) (test code = 60287-7) 0.146 0.350-4.940 [facility] AllenUrine color rioqvnaobxlmk7686-44-05 04:15:00* Test Item Value Reference Range Interpretation Comments Urine Color (test code = 5778-6) YELLOW YELLOW DARK YELLOWTexas Health AllenUrine wdjftnl5152-90-84 04:15:00* Test Item Value Reference Range Interpretation Comments Urine Clarity (test code = 82770-3) CLEAR CLEAR [facility] Hospitalpecific gravity of Urine by Test strip 2020-07-21 04:15:00* Test Item Value Reference Range Interpretation Comments Urine Specific [place] (test code = 5811-5) 1.020 1.010-1.02 5 [facility] AllenUrine pH measurement by automated test zhtvu4328-55-05 04:15:00* Test Item Value Reference Range Interpretation Comments Urine pH (test code = 98221-8) 5 5-7 [facility] leukocyte esterase detection by jdzkccqf6119-64-02 04:15:00* Test Item Value Reference Range Interpretation Comments Urine Leukocyte Esterase (test code = 5799-2) NEGATIVE NEGATIVE [facility] nitrite ltwvxhjkt4600-52-99 04:15:00* Test Item Value Reference Range Interpretation Comments Urine Nitrite (test code = 70011-1) NEGATIVE NEGATIVE [facility] protein measurement by test strip (mass/volume)2020-07-21 04:15:00* Test Item Value Reference Range Interpretation Comments Urine Protein (test code = 5804-0) 1+ NEGATIVE [facility] glucose felwwkkam1134-64-09 04:15:00* Test Item Value Reference Range Interpretation Comments Urine Glucose (UA) (test code = 2349-9) NEGATIVE NEGATIVE [facility] Allen[facility] ketones detection by automated test mudjj1177-80-11 04:15:00* Test Item Value Reference Range Interpretation Comments Urine Ketones (test code = 94995-4) 1+ NEGATIVE [facility] urobilinogen measurement by test strip (mass/volume)2020-07-21 04:15:00* Test Item Value Reference Range Interpretation Comments Urine Urobilinogen (test code = 12754-3) 1 0.2-1 [facility] total bilirubin measurement (mass/volume)2020-07-21 04:15:00* Test Item Value Reference Range Interpretation Comments Urine Bilirubin (test code = 1978-6) SMALL NEGATIVE [facility] AllenU[facility] erythrocytes mzzocsrts2355-28-45 04:15:00* Test Item Value Reference Range Interpretation Comments Urine Blood (test code = 01324-8) NEGATIVE NEGATIVE [facility] AllenAutomated urine sediment leukocyte count by microscopy (number/high power field)2020-07-21 04:15:00* Test Item Value Reference Range Interpretation Comments Urine WBC (test code = 5821-4) 0-5 0-5 [facility] AllenErythrocytes detection in urine sediment by light akivzexwge2670-86-93 04:15:00* Test Item Value Reference Range Interpretation Comments Urine RBC (test code = 80697-5) 0-5 0-5 [facility] AllenBacteria detection in urine sediment by light hsdgooaewc9444-33-46 04:15:00* Test Item Value Reference Range Interpretation Comments Urine Bacteria (test code = 41194-8) FEW NONE [facility] AllenEpithelial cells detection in urine sediment by light cuufvgfnnn7039-18-23 04:15:00* Test Item Value Reference Range Interpretation Comments Urine Epithelial Cells (test code = 81792-4) MODERATE NONE [facility] plasma ferritin measurement (mass/volume)2020-07-19 20:36:00* Test Item Value Reference Range Interpretation Comments Ferritin (test code = 2276-4) 25.47 21.81-274.66 [facility] mitochondria M2 IgG antibody assay (units/volume)2020-07-19 16:43:00* Test Item Value Reference Range Interpretation Comments Anti-Mitochondrial Antibody (test code = 88698-9) 28.9 0.0- 20.0 Negative 0.0 - 20.0 Equivocal 20.1 - 24.9 Positive > 24.9Mitochondrial (M2) Antibodies are found in 90-96% ofpatients with primary bi liary cirrhosis.Performed at: [facility] [id number] Director: Aurea Peterson MD, Phone: [phone] Memorial Hospitalerum nuclear antibody titer by nkgxxcpireoiswsyjv4800-91-50 16:43:00* Test Item Value Reference Range Interpretation Comments Anti-Nuclear Antibody Screen (test code = 5048-4) Negative . Negative <1:80 Borderline 1:80 Positive > 1:80Performed at: [facility] [address] [id number] 3Lab Director: Lexa Luque MD, Phone: [phone] Memorial Hospitalerum or plasma rheumatoid factor measurement (units/volume)2020-07-19 16:43:00* Test Item Value Reference Range Interpretation Comments Rheumatoid Factor (test code = 89955-7) 20.0 0.0-13.9 Performed at: [facility] [address] [id number] Director: Lexa Luque MD, Phone: [phone] Memorial Hospitalerum or plasma actin IgG antibody assay (units/volume)2020-07-19 16:43:00 * Test Item Value Reference Range Interpretation Comments Anti-Smooth Muscle Antibody (test code = 29487-4) 15 0-19 Negative 0 - 19 Weak positi ve 20 - 30 Moderate to strong positive >30 Actin Antibodies are found in 52-85% of patients with autoimmune hepatitis or chronic active hepatitis and in 22% of patients with primary biliary cirrhosis. [facility] or plasma cyclic citrullinated peptide IgA+IgG antibody assay by immunoassay (units/volume)2020-07-19 16:43:00 * Test Item Value Reference Range Interpretation Comments Cyclic Citrullinated Peptide IgG Ab (test code = 84250-8) 5 0-19 Negative <20 Weak positive 20 - 39 Moderate positive 40 - 59 Strong positive >59Performed at: [facility] [id number] Director: Aurea Peterson MD, Phone: [phone] [facility] SINGLE (PORTABLE)2020-07-19 10:57:00 [place] [address] Patient Name: SHERIE HEATON MR #: [id number] : 1930 Age/Sex: 89/M Req #: [id number] Adm Physician: CHINO GRAF MD Ordered by: CHINO GRAF MD Report #: [id number] Location: MED/SURG2 Room/Bed: [facility] Procedure: [id number] DX/CHEST SINGLE ( PORTABLE) Exam Date: 07/19/20 Exam Time: 1042 REPORT STATUS: Signed EXAMINATION: CH EST SINGLE (PORTABLE) INDICATION: SOB. COMPARISON: Chest radiogra ph 07/18/2020. FINDINGS: LINES/TUBES:None LUNGS:The lung volu mes are low with bibasilar subsegmental atelectasis and crowding of the pulmon marilu vasculature bilaterally. No evidence of pneumonia or pulmonary edema. PLEURA:No pleural effusion or pneumothorax. MEDIASTINUM:The cardiomediasti nal silhouette appears normal in size and shape. Atherosclerotic calcification s of the thoracic aorta. BONES/SOFT TISSUES:No acute osseous injury. A BDOMEN:No free air under the diaphragm. IMPRESSION: Mild bibasilar atele ctasis. Signed by: Dr. Erik Arguelles M.D. on 07/19/2020 10:58 AM Dictated By: MANDY ARGUELLES MD, MD 105 Transcribed By: JIMMY on 07/19/20 105 COPY TO: CHINO GRAF MD CT ABDOMEN/PELVIS [id number] 10:50:00 [place] [address] Patient Name: SHERIE HEATON MR #: [id number] : 1930 Age/Sex: 89/M Req #: [id number] Adm Physician: CHINO GRAF MD Ordered by: CHINO GRAF MD Report #: [id number] Location: MED/SURG2 Room/Bed: [facility] Procedure: [id number] CT/CT ABDOMEN/PEL VIS W Exam Date: 07/19/20 Exam Time: 1030 REPORT STATUS: Signed EXAM: CT Abdomen and Pelvis WITH contrast INDICATION: Thrombocytopenia. Anemia. Elevated liver e nzymes and anemia. COMPARISON: None. TECHNIQUE: Abdomen and pelvis were scan matheus utilizing a multidetector helical scanner from the lung base to the pubic symphysis after administration of IV contrast. Coronal and sagittal reformatio ns were obtained. Routine protocol was performed. Scan was performed when duri ng portal venous phase. IV CONTRAST: 150 mL of Omnipaque 300 ORAL CONTRAST: Water RADIATION DOSE: Total DLP: 759.80 mG y*cm Estimated effective dose: (DLP x 0.015 x size factor) mSv COMPLICATIONS: None FINDINGS: LINES and TUBES: None. LOWER THORAX: Bibasilar atelectasis. Extensive coronary artery calcifications. HEPATOBILIARY: Mild nodular hepatic contour. The liver is shrunken, with a hypertrophy of the caudate lobe, consistent with cirrhotic morphology. No f ocal hepatic lesions. No biliary ductal dilation. GALLBLADDER: There are c holecystectomy clips. SPLEEN: No splenomegaly. PANCREAS: No foca l masses or ductal dilatation. ADRENALS: No adrenal nodules KIDN EYS/URETERS: Kidneys enhance symmetrically. No hydronephrosis. No cystic or s olid mass lesions. No stones. GI TRACT: No abnormal distention to suggest obstruction. Mild diffuse wall thickening of the colon may be in part related to underdistention, however, cannot exclude portal colon. There is also diffus e wall thickening of the second and third portions of the duodenum. There are diverticula within the colon without evidence of diverticulitis. Appendix is nonvisualized, with metallic densities in the right lower quadrant, possibly r eflecting appendectomy. PELVIC ORGANS/BLADDER: Unremarkable. LYMPH N ODES: No lymphadenopathy. VESSELS: There is moderate atherosclerotic diseas e in the aorta and major arterial branches. Extensive collateral venous circul ation, with spontaneous left splenorenal shunt. Recanalized umbilical vein. Mi nimal hypodensity in the anterior aspect as seen on image 29 series 2 consiste nt with mild nonocclusive thrombus. PERITONEUM / RETROPERITONEUM: Moderat e volume ascites. BONES: There are degenerative changes in the lumbar spine . Lower thoracic DISH. SOFT TISSUES: Unremarkable. IMPRESS ION: 1. Hepatic cirrhosis. 2. Portal hypertension with a large collateral s and spontaneous left splenorenal shunt. 3. Mild nonocclusive main portal vein thrombus. This could be further evaluated with ultrasound Doppler of the hepatosplenic vasculature if warranted. 4. Moderate volume ascites. 5. Status post cholecystectomy. No significant biliary dilatation. 6. 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 Signed by: Dr. Erik Arguelles M.D. on 07/19/2020 10:57 AM Dictated By: MANDY Stover aissatou Signed By: MANDY ARGUELLES MD, MD on 07/19/201056 Transcribed By: JIMMY on 07/19/20 105 COPY TO: CHINO GRAF MD Serum or plasma iron measurement (mass/volume)2020-07-19 08:05:00* Test Item Value Reference Range Interpretation Comments Iron Level (test code = 2498-4) 194 65-175 [facility] or plasma iron binding capacity measurement (mass/volume)2020-07-19 08:05:00* Test Item Value Reference Range Interpretation Comments Total Iron Binding Capacity (test code = 2500-7) 203 261-4 78 [facility]er[facility] or plasma iron saturation measurement (mass fraction)2020-07-19 08:05:00* Test Item Value Reference Range Interpretation Comments Percent Iron Saturation (test code = 2502-3) 96 15-50 [facility]er[facility] or plasma transferrin measurement (mass/volume)2020-07-19 08:05:00* Test Item Value Reference Range Interpretation Comments Transferrin (test code = 3034-6) 145 174-364 [facility] AllenAmmonia Xdb-wLca5749-90-23 08:05:00* Test Item Value Reference Range Interpretation Comments Ammonia (test code = 52269-4) 103 31-123 [facility] AllenBNP Hzw-rXhu7792-14-23 08:05:00* Test Item Value Reference Range Interpretation Comments B-Type Natriuretic Peptide (test code = 34212-0) 193.8 0-100 [facility]er[facility] or plasma hepatitis A virus IgM antibody detection by fvbsiardhil1232-51-02 08:05:00* Test Item Value Reference Range Interpretation Comments Hepatitis A IgM Antibody (test code = 39992-5) Negative Negativ e [facility]er[facility] or plasma hepatitis B virus surface antigen detection by oqdemexqpmp2767-90-73 08:05:00* Test Item Value Reference Range Interpretation Comments Hepatitis B Surface Antigen (test code = 5196-1) Negative Negat sarabjit [facility]er[facility] or plasma hepatitis B virus core IgM antibody detection by lnxgclrqbbs6875-73-04 08:05:00* Test Item Value Reference Range Interpretation Comments Hepatitis B Core IgM Antibody (test code = 17338-7) Negative Ne gative [facility]er[facility] hepatitis C virus antibody lflwpjiuy6306-37-36 08:05:00* Test Item Value Reference Range Interpretation Comments Hepatitis C Antibody (test code = 33118-4) <0.1 0.0-0.9 Negative: < 0.8 Indeterminate: 0.8 - 0.9 Positive: > 0.9 The CDC recommends that a positive HCV antibody result be followed up with a HCV Nucleic Acid Amplification test (715160).Performed at: [facility]Day[facility] [address] [place] [id number] Director: Lexa Luque MD, Phone: [phone] Health AllenCHES SINGLE (PORTABLE) 2020-07-18 17:20:00 [place] [address] Patient Name: SHERIE HEATON MR #: [id number] : 1930 Age/Sex: 89/M Req #: [id number] Adm Physician: CHINO GRAF MD Ordered by: TIFFANY LEONARD MD Report #: [id number] Location: [facility] Room/Bed: [place] [address] Procedure: [id number] DX/CHEST SINGLE ( PORTABLE) Exam Date: 07/18/20 Exam Time: 1507 REPORT STATUS: Signed EXAMINATION: CH EST SINGLE (PORTABLE) INDICATION: SOB. COMPARISON: Chest radiogra ph 12-10-2019. FINDINGS: LINES/TUBES:None LUNGS:The lung volu mes are low with vascular crowding. No evidence of pneumonia or pulmonary gildardo a. PLEURA:No pleural effusion or pneumothorax. MEDIASTINUM:The cardiom ediastinal silhouette appears normal in size and shape. Atherosclerotic calcif ications of the thoracic aorta. BONES/SOFT TISSUES:No acute osseous injury. ABDOMEN:No free air under the diaphragm. IMPRESSION: No acute radi ographic abnormality. Signed by: Dr. Nilsa Hancock MD on 07/18/2020 5:22 PM Dictated By: NILSA HANCOCK MD 21 COPY TO: TIFFANY LEONARD MD Fluoroscopic procedure less than one hour jzdqrbjc2677-15-65 16:10:00* Test Item Value Reference Range Interpretation Comments Coronavirus (PCR) (test code = Coronavirus (PCR)) NOT DETECTED NOTD ETECTED [employer]ptima SARS-CoV-2 assay is a nucleic amplification test intended for the qualitative detection of RNA from SARS-CoV-2 from nasopharyngeal ([employer]) specimens . It is used under Emergency Use Authorization (EUA) by FDA.A positive result is indicative of the presence of SARS-CoV-2 RNA. Clinical correlation with patient history and other diagnostic information is necessary to determine patient infe ction status.A negative (Not Detected) result does not preclude SARS-CoV-2 infec tion. Clinical Correlation with patient history and other diagnostic information should be used in patient management decisions.Invalid: Unable to generate a va lid result on this specimen. Please submit a new specimen for reprat testing oc clinically indicated.Tesing performed by:[facility] [address] [place] [id number], Yordy Bo MD, PhD [facility] AllenProthrombin time (PT) in platelet poor plasma by coagulation wjlux8914-75-84 14:35:00* Test Item Value Reference Range Interpretation Comments Prothrombin Time (test code = 5902-2) 15.5 11.9-14.5 [facility] AllenINR in Platelet poor plasma by Coagulation zzetv6739-40-37 14:35:00* Test Item Value Reference Range Interpretation Comments Prothromb Time International Ratio (test code = 6301-6) 1.17 Oral Anticoagulant Therapy INR Values:1. Low Intensity Therapy 1.5 - 2.02 . Moderate Intensity Therapy 2.0 - 3.03. High Intensity Therapy(1) 2.5 - 3. 54. High Intensity Therapy(2) 3.0 - 4.05. Panic Value INR > 5.0 [facility] AllenActivated partial thromboplastin time (aPTT) in platelet poor plasma by coagulation aigup1420-17-15 14:35:00* Test Item Value Reference Range Interpretation Comments Activated Partial Thromboplast Time (test code = 37283-2) 35.3 23.8-35.5 [facility]er[facility] or plasma creatine kinase measurement (enzymatic activity/volume)2020-07-18 14:35:00* Test Item Value Reference Range Interpretation Comments Creatine Kinase (test code = 2157-6) 46 30-200 [facility]er[facility] or plasma creatine kinase MB measurement (mass/volume)2020-07-18 14:35:00* Test Item Value Reference Range Interpretation Comments Creatine Kinase MB (test code = 35882-3) 1.00 0-5.0 [facility] AllenTroponin I measurement by highly sensitive enzyme lahosbydvhb8331-46-40 14:35:00* Test Item Value Reference Range Interpretation Comments Troponin I (test code = 23922-8) 0.028 0-0.300 [facility] Hospitaltool gastrointestinal hemoglobin bxmcthlgj0608-25-04 11:00:00* Test Item Value Reference Range Interpretation Comments Stool Occult Blood (test code = 2335-8) POSITIVE NEGATIVE [facility] AllenCHEST 2 ALFAI4740-78-85 10:21:00 [facility] [address] [place] [address] Patient Name: SHERIE HEATON MR #: [id number] : 1930 Age/Sex: 89/M Req #: [id number] Adm Physician: Ordered by: ALESSANDRA GUTIERREZ DO Report #: [id number] Location: ER Room/Bed: Procedure: [id number] DX/ CHEST 2 VIEWS Exam Date: 12/10/19 Exam Time: 906 REPORT STATUS: Signed EXAMINATION: CHEST 2 VIEWS INDICATION: Chest pain COMPARISON: None FINDINGS: LINES/TUBES:None LUNGS:The lung volumes are low. Mild pulmon marilu vascular crowding related to low lung volumes. No focal consolidation or p ulmonary edema. PLEURA:No pleural effusion or pneumothorax. MEDIASTINU M:The cardiomediastinal silhouette appears normal in size and shape. Atheroscl erotic calcifications of the thoracic aorta. BONES/SOFT TISSUES:No acute os seous injury. ABDOMEN:No free air under the diaphragm. IMPRESSION: Low lung volumes. No focal pneumonia or pulmonary edema. Signed by: Esau Carrizales MD on 12/10/2019 10:22 AM Dictated By: ERIN CARRIZALES MD Electronical ly Signed By: ERIN CARRIZALES MD on 12/10/19 1022 Transcribed By: JIMMY on 0 1022 COPY TO: ALESSANDRA GUTIERREZ DO B-Type Natriuretic Peptide 2019-12-10 09:41:00* Test Item Value Reference Range Interpretation Comments B-Type Natriuretic Peptide (test code = 31718-7) 403.8 0-100 H [facility] AllenCreatine Kinase GC5908-81-99 08:54:00* Test Item Value Reference Range Interpretation Comments Creatine Kinase MB (test code = 62703-1) 2.10 0-5.0 [facility] AllenTroponin D9180-94-70 08:54:00* Test Item Value Reference Range Interpretation Comments Troponin I (test code = SGK0670) 0.022 0-0.300 [facility] Hospitalodium Xgpzf8711-32-90 08:30:00* Test Item Value Reference Range Interpretation Comments Sodium Level (test code = 2951-2) 140 136-145 [facility] AllenPotassium Puqkl0753-82-28 08:30:00* Test Item Value Reference Range Interpretation Comments Potassium Level (test code = 2823-3) 4.3 3.5-5.1 [facility] AllenChloride Gwqpt1471-53-78 08:30:00* Test Item Value Reference Range Interpretation Comments Chloride Level (test code = 2075-0) 108 98-107 H [facility] AllenCarbon Dioxide Abogj7743-01-38 08:30:00* Test Item Value Reference Range Interpretation Comments Carbon Dioxide Level (test code = 2028-9) 24 22-29 [facility] AllenAnion Ysb6120-06-39 08:30:00* Test Item Value Reference Range Interpretation Comments Anion Gap (test code = 27080-6) 12.3 8-16 [facility] AllenBlood Urea Aisnsjuz9668-76-50 08:30:00* Test Item Value Reference Range Interpretation Comments Blood Urea Nitrogen (test code = 3094-0) 12 7-26 [facility] AllenCreatinine2020-01-14 08:30:00* Test Item Value Reference Range Interpretation Comments Creatinine (test code = 2160-0) 0.84 0.72-1.25 [facility] AllenBUN/Creatinine Ukfwu2388-86-46 08:30:00* Test Item Value Reference Range Interpretation Comments BUN/Creatinine Ratio (test code = 3097-3) 14 6-25 [facility] AllenEstimat Glomerular Filtration Rate 2019-12-10 08:30:00* Test Item Value Reference Range Interpretation Comments Estimat Glomerular Filtration Rate (test code = 816062270) > 60 >60 Ranges were taken from the National Kidney Disease Education Program and the [facility] Kidney Foundation literature.Reference ranges:60 or greater: Qjkmxp90-63 ( for 3 consecutive months): Chronic kidney disease 15 or less: Kidney failureTexas Health AllenGlucose Bnwok2671-14-57 08:30:00* Test Item Value Reference Range Interpretation Comments Glucose Level (test code = DBD0654) 90 74-118 [facility] AllenCalcium Xpsuu0930-43-11 08:30:00* Test Item Value Reference Range Interpretation Comments Calcium Level (test code = 70921-0) 8.1 8.4-10.2 L [facility] AllenTotal Ytzcgiual0415-73-26 08:30:00* Test Item Value Reference Range Interpretation Comments Total Bilirubin (test code = 1975-2) 1.0 0.2-1.2 [facility] AllenAspartate Amino Transf (AST/SGOT) 2019-12-10 08:30:00* Test Item Value Reference Range Interpretation Comments Aspartate Amino Transf (AST/SGOT) (test code = Aspartate Amino Transf (AST/SGOT)) 44 5-34 H [facility] AllenAlanine Aminotransferase (ALT/SGPT) 2019-12-10 08:30:00* Test Item Value Reference Range Interpretation Comments Alanine Aminotransferase (ALT/SGPT) (test code = 1742-6) 25 0-55 [facility] Friscotal Szjsqcz7053-86-93 08:30:00* Test Item Value Reference Range Interpretation Comments Total Protein (test code = 2885-2) 6.4 6.5-8.1 L [facility] AllenAlbumin2020-01-14 08:30:00* Test Item Value Reference Range Interpretation Comments Albumin (test code = 1751-7) 2.9 3.5-5.0 L [facility] AllenGlobulin2020-01-14 08:30:00* Test Item Value Reference Range Interpretation Comments Globulin (test code = 06417-7) 3.5 2.3-3.5 [facility] AllenAlbumin/Globulin Hkegl1245-51-76 08:30:00 * Test Item Value Reference Range Interpretation Comments Albumin/Globulin Ratio (test code = 1759-0) 0.8 0.8-2.0 [facility] AllenAlkaline Rxdumkloxjs6261-06-54 08:30:00* Test Item Value Reference Range Interpretation Comments Alkaline Phosphatase (test code = 6768-6) 138 40-150 [facility] AllenCreatine Ornmdz0622-89-20 08:30:00* Test Item Value Reference Range Interpretation Comments Creatine Kinase (test code = 2157-6) 71 30-200 [facility] AllenWhite Blood Rzfgt3749-06-95 08:08:00* Test Item Value Reference Range Interpretation Comments White Blood Count (test code = 6690-2) 5.80 4.8-10.8 [facility] AllenRed Blood Hoiov8168-93-25 08:08:00* Test Item Value Reference Range Interpretation Comments Red Blood Count (test code = 789-8) 2.89 4.3-5.7 L [facility] AllenHemoglobin2020-01-14 08:08:00* Test Item Value Reference Range Interpretation Comments Hemoglobin (test code = 35644-6) 9.8 14.0-18.0 L [facility] AllenHematocrit2020-01-14 08:08:00* Test Item Value Reference Range Interpretation Comments Hematocrit (test code = 4544-3) 28.7 38.2-49.6 L [facility] AllenMean Corpuscular Vgcgoh8003-01-94 08:08:00* Test Item Value Reference Range Interpretation Comments Mean Corpuscular Volume (test code = 787-2) 99.3 81-99 H [facility] AllenMean Corpuscular Kxmymrayvj6737-92-84 08:08:00* Test Item Value Reference Range Interpretation Comments Mean Corpuscular Hemoglobin (test code = 785-6) 33.9 28-32 H [facility] AllenMean Corpuscular Hemoglobin Concent 2019-12-10 08:08:00* Test Item Value Reference Range Interpretation Comments Mean Corpuscular Hemoglobin Concent (test code = 786-4) 34.1 31-35 [facility] AllenRed Cell Distribution Aztrm7920-72-01 08:08:00* Test Item Value Reference Range Interpretation Comments Red Cell Distribution Width (test code = 17958-2) 16.1 11.7 -14.4 H [facility] AllenPlatelet Lwugd2287-08-15 08:08:00* Test Item Value Reference Range Interpretation Comments Platelet Count (test code = 777-3) 82 140-360 L [facility] AllenNeutrophils (%) (Auto)2019-12-10 08:08:00 * Test Item Value Reference Range Interpretation Comments Neutrophils (%) (Auto) (test code = 22196-3) 68.9 38.7-80.0 [facility] AllenLymphocytes (%) (Auto)2019-12-10 08:08:00 * Test Item Value Reference Range Interpretation Comments Lymphocytes (%) (Auto) (test code = 736-9) 17.4 18.0-39.1 L [facility] AllenMonocytes (%) (Auto)2019-12-10 08:08:00* Test Item Value Reference Range Interpretation Comments Monocytes (%) (Auto) (test code = 5905-5) 10.5 4.4-11.3 [facility] AllenEosinophils (%) (Auto)2019-12-10 08:08:00 * Test Item Value Reference Range Interpretation Comments Eosinophils (%) (Auto) (test code = 713-8) 2.6 0.0-6.0 [facility] AllenBasophils (%) (Auto)2019-12-10 08:08:00* Test Item Value Reference Range Interpretation Comments Basophils (%) (Auto) (test code = 706-2) 0.3 0.0-1.0 [facility] AllenIM GRANULOCYTES %2019-12-10 08:08:00* Test Item Value Reference Range Interpretation Comments IM GRANULOCYTES % (test code = IM GRANULOCYTES %) 0.3 0.0- 1.0 [facility] AllenNeutrophils # (Auto)2019-12-10 08:08:00* Test Item Value Reference Range Interpretation Comments Neutrophils # (Auto) (test code = 751-8) 4.0 2.1-6.9 [facility] AllenLymphocytes # (Auto)2019-12-10 08:08:00* Test Item Value Reference Range Interpretation Comments Lymphocytes # (Auto) (test code = 62357-2) 1.0 1.0-3.2 [facility] AllenMonocytes # (Auto)2019-12-10 08:08:00* Test Item Value Reference Range Interpretation Comments Monocytes # (Auto) (test code = 742-7) 0.6 0.2-0.8 [facility] AllenEosinophils # (Auto)2019-12-10 08:08:00* Test Item Value Reference Range Interpretation Comments Eosinophils # (Auto) (test code = 711-2) 0.2 0.0-0.4 [facility] AllenBasophils # (Auto)2019-12-10 08:08:00* Test Item Value Reference Range Interpretation Comments Basophils # (Auto) (test code = 704-7) 0.0 0.0-0.1 [facility] 2019-12-10 08:08:00* Test Item Value Reference Range Interpretation Comments Absolute Immature Granulocyte (auto (rich t code = Absolute Immature Granulocyte (auto) 0.02 0-0.1 [facility]
[2020-08-05] MEDS ORDERED: TRIAMCINOLONE A15 G1 TOP (16:14)
--- NOTE | 2020-08-05 16:38 | NUR ---
pt transferred from the ED in stable condition, no distress noted.
[2020-08-05 17:20] VITALS: BP 112/57
[2020-08-05] MEDS: TRIAMCINOLONE ACET 0.1% CREAM 15 GM TUBE TOP SCH (18:28)
--- NOTE | 2020-08-05 18:28 | NUR ---
paged attending doctor for orders
[2020-08-05 18:42] VITALS: BP 112/57
[2020-08-05] MEDS ORDERED: DEXTROSE 50% SYRINGE 50 ML IV PRN (18:45)
[2020-08-05] MEDS ORDERED: HYDROMORPHONE 1MG/1ML INJ IV PRN (18:45)
[2020-08-05] MEDS ORDERED: ONDANSETRON HCL INJ 2MG/ML 2ML 2 MG/ML VIAL IV PRN (18:45)
[2020-08-05] MEDS ORDERED: HYDRALAZINE HCL 20 MG/ML VIAL IV PRN (18:45)
--- NOTE | 2020-08-05 19:25 | NUR ---
Gave report to night filler nurse, updated nurse on new orders
--- NOTE | 2020-08-05 19:30 | NUR ---
Patient visited in room during nursing rounds. Patient alert and oriented x2. at bedside. Patient and aware pt will be receiving 2 units of Platelets (per MD order) tonight. Patient has generalized weakness and is on bedrest at this time. Q2hr turn. Patient incontinent and diapered. Several wounds all over body (open to air). Left groin with sloughed wound. Call mary within reach. Bed alarm active.
[2020-08-05 20:00] VITALS: BP 108/52
[2020-08-05] MEDS: INSULIN LISPRO 100 UNIT/1 ML 3ML VIAL SQ SCH (20:30)
[2020-08-05 21:00] VITALS: BP 108/52
[2020-08-05] MEDS ORDERED: SODIUM CHLORIDE 0.9% 250ML 250 ML ONE (22:15)
--- NOTE | 2020-08-05 22:15 | NUR ---
1st unit of Platelets transfused on patient. Patient's vital signs stable.
--- NOTE | 2020-08-05 22:45 | NUR ---
1st unit of platelet transfusion finished. Patient tolerated transfusion well.
--- NOTE | 2020-08-05 23:37 | NUR ---
2nd unit of Platelets transfused on patient. Patient's vital signs stable.
[2020-08-06] VITALS (9 sets, daily range): BP systolic 112–135; BP diastolic 55–77
--- NOTE | 2020-08-06 00:15 | NUR ---
2nd unit of platelet transfusion finished. Patient tolerated transfusion well.
[2020-08-06 03:38] LABS: EOSINOPHILS % 1.3 % (0.0-6.0); LYMPHOCYTES # (AUTO) 0.1 (1.0-3.2); MEAN CORPUSCULAR HGB CONC 35.6 g/dL (31-35); MEAN CORPUSCULAR VOLUME 89.8 fL (81-99); MONOCYTES % 1.3 % (4.4-11.3); NEUTROPHILS # (AUTO) 0.6 (2.1-6.9); NEUTROPHILS % 80.1 % (38.7-80.0); PLATELET COUNT 90 x10e3/uL (140-360); RED BLOOD COUNT 1.97 x10e6/uL (4.3-5.7); RED CELL DISTRIBUTION WIDTH 16.3 % (11.7-14.4)
[2020-08-06 03:42] LABS: HEMATOCRIT 17.7 % (38.2-49.6); HEMOGLOBIN 6.3 g/dL (14.0-18.0)
--- NOTE | 2020-08-06 03:45 | NUR ---
Called Dr. Elmo Villarreal and informed him of Hgb = 6.3, Hct = 17.7 and WBC = 0.75. MD aware and ordered to give 2 units of PRBC and supported pt on reverse isolation.
[2020-08-06 03:53] LABS: ANION GAP 19.2 mmol/L (8-16); CALCIUM 7.5 mg/dL (8.4-10.2); CREATININE, SERUM 3.22 mg/dL (0.72-1.25); POTASSIUM 4.2 mmol/L (3.5-5.1)
[2020-08-06] MEDS ORDERED: SODIUM CHLORIDE 0.9% 250ML 250 ML IV ONE (04:00)
[2020-08-06 04:03] LABS: LYMPHOCYTES % (MANUAL) 22 % (19-48); MONOCYTES % (MANUAL) 2 % (3.4-9.0); NEUTROPHILS % (MANUAL) 76 % (40-74)
[2020-08-06 04:04] LABS: ANISOCYTOSIS MODERATE; ELLIPTOCYTE, RBC SLIGHT; HYPOCHROMASIA SLIGHT; PLATELET ESTIMATE MARKEDLY DECREASED; PLATELET MORPHOLOGY COMMENT FEW LARGE; RBC MORPHOLOGY COMMENT ABNORMAL
--- NOTE | 2020-08-06 05:00 | NUR ---
1st unit of PRBC started on patient per MD order. Patient in stable condition.
[2020-08-06] MEDS: INSULIN LISPRO 100 UNIT/1 ML 3ML VIAL SQ SCH ×4 (07:30→21:00)
--- NOTE | 2020-08-06 08:30 | NUR ---
pt blood finished, pt tolerated well. no sob no [ain indicated , and when asked. will cont to monitor.
--- NOTE | 2020-08-06 08:41 | NUR ---
pt blood sugar 66, pt given 1/2 amp of d50. will cont to monitor.
[2020-08-06] MEDS: TRIAMCINOLONE ACET 0.1% CREAM 15 GM TUBE TOP SCH ×2 (10:24→17:23)
--- NOTE | 2020-08-06 10:30 | NUR ---
call to dr. dorsey, for orders.
[2020-08-06] MEDS ORDERED: SODIUM CHLORIDE 0.9% 250ML 250 ML ONE (10:58)
--- NOTE | 2020-08-06 11:20 | NUR ---
2nd unit of blood started at this time, pt tolerating well. no c/p of sob nor pain.
--- NOTE | 2020-08-06 12:37 | NUR ---
call to dr. dorsey, for orders.
--- NOTE | 2020-08-06 13:21 | NUR ---
WOUND CARE CONSULT 89 YO MALE HX OF PANCYTOPENIA GLEN 14 0N MODERATE PUP STATUS AND INTERVENTIONS ALTERNATING PRESSURE MATTRESS LABS: WBC- .75 HGB- 6.3 GLUCOSE-92 SKIN ASSESSMENT COMPLETE PATIENT PRESENTS WITH DENUDED ULCERATION TO SCROTUM AND LEFT GROIN RECOMMENDATIONS: NURSING TO CONTINUE TO MONITOR PATIENT AND KEEP SKIN CLEAN AND FREE FROM LOOSE STOOL OR IRRITATING MOISTURE AND CONTINUE TO FOLLOW MODERATE PUP INTERVENTIONS NURSING TO CONTINUE TO GET PATIENT OUT OF BED FOR MEALS AND MUCH TOLERATED NURSING TO CLEAN SCROTAL AND LEFT GROIN ULCERATION WITH NORMAL SALINE DAILY AND APPLY BARRIER PASTE TO AREA AND MAINTAIN AREA KEEPING CLEAN AND DRY PLACE MAXSORB AG PAD BETWEEN GROIN SKIN FOLD TO PREVENT SKIN TO SKIN CONTACT Addendum: 08/06/20 at 1331 by Devyn Figueroa RN Amended: Links added.
[2020-08-06] MEDS: ZINC OXIDE/ MENTHOL 113 GM TUBE TOP SCH ×2 (15:00→21:00)
--- NOTE | 2020-08-06 17:20 | NUR ---
Nutrition Intervention Note RD Recommendation(s) for Physician: -Diet regimen per Speech therapy or MD and if PO intake is indicated, recommend Ensure Enlive BID -If PO intake is not feasible, consider alternative means of nutrition -The patient meets criteria for unspecified SEVERE protein-calorie malnutrition. Plan of Care: RD following, monitoring for tolerance and adequacy Nutrition reason for involvement: Nutrition Risk Trigger RD Assessment (08/06/20) Pt is an 89 year old male admitted with pancytopenia. Speech therapy note indicated pt has oral lesions and recommended pt remain NPO at this time. Spoke to family member at bedside who reported pt has been eating <50% of meals for the past 5 days and had lost weight since April 2020. Pt had weighed 173 lbs in April 2020 per family member and pt currently has a weight of 157 lbs in chart. This would be a 9% weight loss in 3 months which is considered to be significant weight loss. No N/V noted. Will continue to monitor Principal Problems/Diagnoses: pancytopenia PMH: Hypertension, type 2 diabetes mellitus, anemia, possible rheumatoid arthritis. GI: soft/non-tender abdomen, no BM recorded Skin: denuded ulceration to scrotum and left groin per wound care note 08/06 Labs: (08/06) Na 134, BUN 76, Cr 3.22, Glu 92, Ca 7.5 Meds: zofran, dilaudid, insulin, zinc oxide Ht: 66 inches Wt: 157.03 lbs BMI: 25.3 kg/m2 IBW: 142 lbs Malnutrition Evaluation (08/06/20) The patient meets criteria for unspecified SEVERE protein-calorie malnutrition. Energy intake: <50% of estimated energy requirements for 5 days Weight loss: >7.5% in 3 months (Acute) Fat loss: unable to perform NFPE at this time Muscle loss: unable to perform NFPE at this time Supporting Evidence: Fluid accumulation: unable to evaluate Functional Status: unable to evaluate Nutrition Prescription (Diet Order): NPO Estimated Nutritional Needs: 6739-7633 calories/day (20-25 kcal/kg CBW) 85-143 g protein/day (1.2-2 g pro/kg CBW) Diet Adequacy: Not meeting calorie needs, Not meeting protein needs Tolerance: N/A Diet Education Needs Assessment: Diet education not indicated, patient is NPO Nutrition Care Level: moderate Nutrition Diagnosis: Severe protein-calorie malnutrition related to acute illness as evidenced pt meeting <50% of estimated energy needs for 5 days and >7.5% weight loss in 3 months. Goal: Patient will meet 75-100% of estimated needs by follow up Progress: N/A Interventions: Commercial beverage Monitoring/Evaluation: -Total energy intake, Total protein intake, Liquid supplement, Weight change Signed: Cherelle Farias RD, LD
[2020-08-06] MEDS ORDERED: SODIUM CHLORIDE 0.9% 250ML 250 ML IV SCH (19:30)
[2020-08-06] MEDS ORDERED: FUROSEMIDE INJ 10 MG/ML 4 ML VIAL IV SCH (19:30)
--- NOTE | 2020-08-06 19:37 | NUR ---
call to dr. dorsey, for orders.
--- NOTE | 2020-08-06 19:48 | NUR ---
report given to oncoming nurse. walking rounds complete.
--- NOTE | 2020-08-06 20:00 | NUR ---
Patient visited in room during nursing rounds. Patient alert and oriented x3. at bedside. Patient appear to have more color on skin and not as pale or as jaundiced as of yesterday. Patient has generalized weakness and is on bedrest at this time. Q2hr turn. Patient incontinent and diapered. Several wounds all over body (open to air). Left groin with sloughed wound. Call mary within reach. Bed alarm active.
[2020-08-06 20:14] LABS: HEMATOCRIT 27.4 % (38.2-49.6); HEMOGLOBIN 9.7 g/dL (14.0-18.0); LYMPHOCYTES # (AUTO) 0.1 (1.0-3.2); LYMPHOCYTES % 18.8 % (18.0-39.1); MEAN CORPUSCULAR HEMOGLOBIN 30.1 pg (28-32); MEAN CORPUSCULAR HGB CONC 35.4 g/dL (31-35); MEAN CORPUSCULAR VOLUME 85.1 fL (81-99); MONOCYTES % 1.6 % (4.4-11.3); NEUTROPHILS # (AUTO) 0.5 (2.1-6.9); RED BLOOD COUNT 3.22 x10e6/uL (4.3-5.7)
[2020-08-06 20:25] LABS: PLATELET COUNT 37 x10e3/uL (140-360)
--- NOTE | 2020-08-06 20:59 | NUR ---
Paged Dr. Reynolds (via answering service) to notify of latest lab values from [facility] (WBC = 0.64, H/H = 9.7/27.4, Platelets = 37). Awaiting on MD call back. Will pass this information during report to incoming dayshift RN. Patient still on Neutropenic isolation.
[2020-08-06] MEDS: DEXTROSE 5%/0.45% SOD CHL 1,000 ML IV SCH (21:29)
--- NOTE | 2020-08-06 22:50 | NUR ---
Patient repositioned in bed. Gown and draw sheets were changed. Provided patient with perineal care. Kenalog cream applied to wound on groin and testicles. Patient appear comfortable and stable. Fingerstick blood glucose checked and it was 91.
[2020-08-07] VITALS (9 sets, daily range): BP systolic 123–144; BP diastolic 54–66
[2020-08-07] MEDS: DEXTROSE 5%/0.45% SOD CHL 1,000 ML IV SCH (06:31)
[2020-08-07] MEDS: INSULIN LISPRO 100 UNIT/1 ML 3ML VIAL SQ SCH ×4 (07:30→21:00)
[2020-08-07] MEDS: TRIAMCINOLONE ACET 0.1% CREAM 15 GM TUBE TOP SCH ×2 (09:00→18:25)
[2020-08-07] MEDS: ZINC OXIDE/ MENTHOL 113 GM TUBE TOP SCH ×4 (09:00→23:11)
[2020-08-07] MEDS ORDERED: FILGRASTIM 480 MCG SYR SQ ONE (09:45)
--- NOTE | 2020-08-07 10:25 | Consultation ---
DATE OF CONSULTATION: 08/06/[address] Dayna Pulliam. HISTORY OF PRESENT ILLNESS: Mr. Jp Hines is an 89-year-old male who referred to me for evaluation of anemia. The patient has been noncommunicative. I have seen him for Dr. Guillen on 07/18/2020 and the patient was referred to me for thrombocytopenia and portal vein thrombosis. The patient also had presented with abdominal pain and weakness. SOCIAL HISTORY: Could not be obtained. FAMILY HISTORY: Could not be obtained. ALLERGIES: NONE. MEDICATIONS: At this time: 1. Sodium chloride. 2. Protonix. 3. Metoprolol. 4. Simvastatin. 5. Inderal. 6. Synthroid. 7. Lasix. REVIEW OF SYSTEMS: HEENT: Normal. CARDIAC: Normal. RESPIRATORY: Normal. GI: Cirrhosis of liver, portal hypertension, hypersplenism, thrombocytopenia, portal vein thrombosis. : Normal. MUSCULOSKELETAL: Normal. SKIN AND BREASTS: Normal. NEUROENDOCRINE: History of hypothyroidism. PHYSICAL EXAMINATION: GENERAL: A large male, however, thin built, non-arousable, fairly anemic. HEART: Within normal limits. LUNGS: Clear. ABDOMEN: Ascites. RECTAL: Could not be done. CENTRAL NERVOUS SYSTEM: Could not be done. EXTREMITIES: 1+ pitting edema of the feet. LABORATORY DATA: Lab shows a hemoglobin of 7.1 on 08/05, however, dropped down to 6.3 on 08/06 with a white count of 750, platelets were reported at 5 to begin with. Chemistry shows a sodium of 134, potassium 4.3, chloride 100, CO2 20, BUN 73, creatinine 3.24, glucose 54, calcium 7.3, bilirubin 3.6, total protein is 5.5, and albumin 2.4. IMPRESSION: 1. Anemia of chronic disease. 2. Anemia of blood loss. 3. Cirrhosis of liver. 4. Thrombocytopenia. 5. Neutropenia. 6. Portal hypertension. 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 8. Portal vein thrombosis. 9. Ascites. 10. Diverticulosis coli. 11. Hypothyroidism. 12. Inability to thrive. PLAN, COMMENTS AND SUGGESTIONS: Blood transfusion. Because of thrombocytopenia, the patient is not a candidate for long-term anticoagulation for portal vein thrombosis. Neutropenia is again because of cirrhosis, however, is getting critical now, I will give him one dose of Neupogen. MD MELITA Ortiz/JOSE /[id number] cc: Dayna Pulliam MD
--- NOTE | 2020-08-07 10:25 | Progress Note ---
DATE: 08/07/2020 SUBJECTIVE: Donny Trammell is an 89-year-old male, was referred to me by Dr. Dayna Pulliam, for evaluation of pancytopenia. For detailed consult, please review my dictation dated 08/06. The patient's white count is getting worse. This is because of cirrhosis. His white count today is 0.64. Platelets are stable at 37,000. There were 5000 to begin with was transfused to 90,000; however, I do not expect the patient to have any higher than [id number] because of cirrhosis. Since the patient's neutropenia is getting worse, he may get septic. I will give him one dose of Neupogen today. Prognosis was discussed with Dr. Dayna Pulliam. He is a hospice candidate. MD MELITA Ortiz/JOSE /[id number]
--- NOTE | 2020-08-07 10:29 | Progress Note ---
DATE: 08/07/2020 SUBJECTIVE: Mr. Trammell is an 89 years old male with history of liver cirrhosis, diabetes, hypertension, and hyperlipidemia, who was recently discharged from [facility] and at that time he was very sick as per Dr. Reynolds and this is the first time I see this patient in this recent admission, so I do not know him from previous admission, but he came to the emergency room because he was very weak and he could not talk. He was found to be pancytopenic. He received platelets, blood transfusions. He has been seen by Dr. Reynolds, who considered the patient is very sick and he will benefit from hospice. Also, he has been seen by Dr. Elmo Villarreal and Nephrology consult was requested also for renal failure. PHYSICAL EXAMINATION: VITAL SIGNS: Today, temperature is 99.8, blood pressure is 128/69. GENERAL: The patient remains confused, stuporous. He is . HEART: Regular rate. LUNGS: Poor inspiratory effort. ABDOMEN: Distended and soft. LABORATORY DATA: On the blood work, white count is 6.64, hemoglobin is 9.7, and hematocrit 27.4. COVID test came back negative. Sugar was 91. Urine culture shows no growth. ASSESSMENT: 1. Severe pancytopenia that predispose him to bleeding. 2. Liver cirrhosis. 3. Dysphagia. 4. Diabetes type 2. 5. Hypertension. 6. Hyperlipidemia. 7. Portal vein thrombosis. PLAN: At present time is, we are going to continue IV fluids. Monitor CBC. Nephrology consult was requested for renal failure. I discussed the case with Dr. Reynolds, who states that the patient is very sick and he probably will benefit from hospice. I spoke with his at the bedside and explained to her that he has a very poor prognosis. She is going to think about code status and she will make a decision about that. I will let Dr. Reynolds discuss with her hospice options if she is willing to do that. This is a very sick patient. The overall prognosis is very poor. I discussed these in extension with . All questions were answered to satisfaction. MD OZIEL Yen/MODL /[id number]
[2020-08-07] MEDS ORDERED: ALBUMIN 5% 0.05 GM/ML BTL IV ONE (11:15)
--- NOTE | 2020-08-07 11:46 | Consultation ---
DATE OF CONSULTATION: REASON FOR CONSULTATION: Acute kidney injury. HISTORY OF PRESENT ILLNESS: Mr. Jp Hines is an 89-year-old gentleman, underlying history of type 2 diabetes, hypertension, has underlying history of cirrhosis of liver, portal hypertension, anemia, and thrombocytopenia. Renal has been consulted for management of abnormal BUN and creatinine. The patient's by bedside. She denies any prior history of any renal insufficiency. She is not sure about kidney stone disease though. The patient lying supine, awake, alert though. Denies any complaints. Denies shortness of breath, nausea, vomiting, appears fairly comfortable. He is wearing diapers. He does not remember when he last voided urine. PAST MEDICAL HISTORY: Significant for pandiverticulosis, rectal varices, internal hemorrhoids, gastropathy, portal hypertensive, [id number] patchy changes, history of hypertension, anemia, history of possible rheumatoid arthritis. Apparently has been on methotrexate at some point in time in the past, nonocclusive portal vein thrombosis, hypothyroidism. His baseline creatinine 1.14. The patient was admitted with profound weakness. No nausea, vomiting, or diarrhea reported. Found to have pancytopenia with a white count of 0.6, hemoglobin 9.7, and platelets 37. Chemistry showing sodium 134, potassium 4.2, bicarb 19, BUN 76, and creatinine 3.22. ALLERGIES: NO APPARENT DRUG ALLERGIES. CURRENT MEDICATIONS: The patient is on zinc oxide. She is on Humalog insulin, Neupogen, D5 half at 75 mL an hour. He is on hydralazine p.r.n., hydromorphone p.r.n., ondansetron p.r.n. Had a brain CT done, shows no acute intracranial findings, microvascular changes. SOCIAL HISTORY: . by bedside. Does not smoke or drink. PHYSICAL EXAMINATION: GENERAL: Awake, alert, and oriented x3, lying supine, in no apparent distress. VITAL SIGNS: Blood pressure 128/61, pulse rate 132, afebrile, and oxygen saturation 89% on room air. HEAD AND NECK: Cornea clear. Oral mucosa moist. Arcus senilis noted. Neck veins flat. No JVD. LUNGS: Relatively clear. No rales or rhonchi. HEART: S1 and S2 audible. ABDOMEN: Otherwise soft and nontender. No apparent visceromegaly. Flanks full. EXTREMITIES: Lower extremity, no edema. IMPRESSION: Mild hyponatremia, high anion gap metabolic acidosis, acute kidney injury in a patient with cirrhosis of liver, profound weakness, and pancytopenia. I suspect possible hepatorenal syndrome, must rule out acute tubular necrosis. PLAN: To discontinue existing IV fluids. We will give IV albumin 5% 500 mL IV over 4 hours. Thereafter start dextrose with bicarb drip at 100 mL an hour. We will have to insert a Monroe catheter with strict I's and O's. Send urine for urinalysis, urine protein/creatinine ratio, urine sodium and creatinine, calculate fraction excretion of sodium. Obtain uric acid level. Discussed with . Discussed with bedside RN. Obtain kidney ultrasound. Samara Ernst MD SAK/MODL /[id number]
[2020-08-07] MEDS ORDERED: ALBUMIN 5% 250ML 500 ML IV ONE (12:00)
--- NOTE | 2020-08-07 12:00 | NUR ---
Patient is unable to follow directions and will not be able to safely do the swallow study, explained to at bedside that we will hydrate him and give him what he needs via iv for now until he is better and can participate.. agrees
--- NOTE | 2020-08-07 13:43 | Diagnostic Imaging Report ---
EXAM: Renal Ultrasound INDICATION: ^garrett COMPARISON: None TECHNIQUE: Transverse and longitudinal images of the kidneys and bladder were obtained. FINDINGS: Right Kidney: Length: 10.5 cm Appearance: Mildly increased echogenicity. Collecting system: No hydronephrosis Stones: None Cyst/Mass: None Left Kidney: Length: 10.7 cm Appearance: Mildly increased echogenicity. Collecting system: No hydronephrosis Stones: None Cyst/Mass: None Bladder: No mass or calculi. Volume estimate of 206 cc. Shadowing calcifications related to the prostate. Incidental note of ascites. IMPRESSION: Mildly increased renal parenchymal echogenicity can be seen in the setting of medical renal disease. No hydronephrosis or renal calculi. Ascites. Signed by: Sharon Tsang MD on 08/07/2020 1:39 PM
[2020-08-07] MEDS: SODIUM BICARBONATE 8.4% SYRING 150 ML in DEXTROSE 5% 1,000 ML IV SCH ×2 (13:56→23:00)
[2020-08-07] MEDS ORDERED: ALBUMIN 25% 25GM 100ML 0.25 GM/ML BTL IV ONE (14:00)
--- NOTE | 2020-08-07 14:56 | NUR ---
ST Note: EMR reviewed. Discussed case with MIRIAM Tenorio. Pt not following commands, declined since yesterday. Hospice possible. Will defer any further intervention for now and f/u as indicated.
--- NOTE | 2020-08-07 15:00 | NUR ---
Monroe placed without difficulty. Cloudy yellow urine returned. at bedside
[2020-08-07] MEDS: ALBUMIN 25% 25GM 100ML 100 ML IV SCH ×2 (16:00→21:07)
[2020-08-07] MEDS ORDERED: CEFTRIAXONE SOD 1 GM/NS 50 ML 50 ML IV ONE (17:00)
[2020-08-07 17:38] LABS: BILIRUBIN,URINE SMALL (NEGATIVE); CLARITY,URINE SL CLOUDY (CLEAR); COLOR,URINE YELLOW (YELLOW); KETONES,URINE NEGATIVE (NEGATIVE); LEUKOCYTE ESTERASE ,URINE NEGATIVE (NEGATIVE); NITRITE,URINE NEGATIVE (NEGATIVE); PROTEIN,URINE DIPSTICK 2+ (NEGATIVE); URINE UROBILINOGEN 1 mg/dL (0.2 - 1)
[2020-08-07 17:41] LABS: AMORPHOUS SEDIMENT,URINE MODERATE (FEW); BACTERIA,URINE MODERATE /HPF
[2020-08-07] MEDS ORDERED: LEVOFLOXACIN 500MG/D5W 100ML 100 ML IV ONE (17:45)
[2020-08-07 17:54] LABS: CREATININE,URINE RANDOM 72.62 mg/dL (63-166); TOTAL PROTEIN, URINE 61.5 mg/dL (1-14)
--- NOTE | 2020-08-07 18:46 | NUR ---
Pt.s temp elevated, notified Dr. Gastelum, ordered us, chest xray, bc, labs for am , iv abx. Family requests to talk to sw for hospice follow up to see if thats what she wants to do. IV to left neck has become very positional and patient unable to co operate to keep neck in a neutral position to allow IV to run. After several attempts IV started to left fa and IVF and albumin now infusing. IV abx to start next.
--- NOTE | 2020-08-07 19:00 | NUR ---
Resumed care of patient. Patient resting quietly in bed, respirations even and unlabored on room air, no s/s of distress at this time. Bed locked and in lowest position, side rails up x3, alarm on, call light placed within reach. Patient instructed to call for assistance if needed, verbalized understanding. Family at bedside. All safety measures in place.
[2020-08-08] VITALS (8 sets, daily range): BP systolic 104–137; BP diastolic 49–71
[2020-08-08] MEDS: ALBUMIN 25% 25GM 100ML 100 ML IV SCH ×2 (02:12→08:48)
[2020-08-08] MEDS: ZINC OXIDE/ MENTHOL 113 GM TUBE TOP SCH ×4 (02:26→21:26)
--- NOTE | 2020-08-08 04:14 | NUR ---
Dr. Francisca Villarreal here to see patient. No new orders received at this time.
[2020-08-08 06:35] LABS: HEMATOCRIT 21.2 % (38.2-49.6); HEMOGLOBIN 7.5 g/dL (14.0-18.0); LYMPHOCYTES # (AUTO) 0.1 (1.0-3.2); LYMPHOCYTES % 66.7 % (18.0-39.1); MEAN CORPUSCULAR HEMOGLOBIN 30.6 pg (28-32); MEAN CORPUSCULAR HGB CONC 35.4 g/dL (31-35); MEAN CORPUSCULAR VOLUME 86.5 fL (81-99); MONOCYTES % 16.7 % (4.4-11.3); NEUTROPHILS % 16.6 % (38.7-80.0); RED BLOOD COUNT 2.45 x10e6/uL (4.3-5.7); RED CELL DISTRIBUTION WIDTH 15.1 % (11.7-14.4)
[2020-08-08 06:44] LABS: PLATELET COUNT 6 x10e3/uL (140-360)
[2020-08-08 06:45] LABS: ALBUMIN/GLOBULIN RATIO 1.4 (0.8-2.0); ANION GAP 18.2 mmol/L (8-16); CALCIUM 7.5 mg/dL (8.4-10.2); CREATININE, SERUM 3.34 mg/dL (0.72-1.25); POTASSIUM 3.2 mmol/L (3.5-5.1)
[2020-08-08 06:52] LABS: BILIRUBIN,DIRECT 5.3 mg/dL (0.0-0.5)
--- NOTE | 2020-08-08 07:48 | Diagnostic Imaging Report ---
EXAMINATION: CHEST SINGLE (PORTABLE) INDICATION: Evaluate for pneumonia chest x-ray on 08/05/2020. COMPARISON: Chest x-ray on 08/05/2020. FINDINGS: TUBES and LINES: None. LUNGS: Low lung volumes with bronchovascular crowding. There is patchy airspace opacity at the right perihilar region and bilateral lower lobes. Stable elevation of the right hemidiaphragm. PLEURA: No pleural effusion or pneumothorax. HEART AND MEDIASTINUM: The cardiomediastinal silhouette is unchanged. Atherosclerotic calcification of the thoracic aortic knob. BONES AND SOFT TISSUES: No acute osseous lesion. Soft tissues are unchanged. UPPER ABDOMEN: No free air under the diaphragm. IMPRESSION: Patchy airspace opacities in the right perihilar and bilateral lung bases which may represent subsegmental atelectasis and/or multifocal pneumonia in the proper clinical context. Signed by: Marek Aquino MD on 08/08/2020 7:44 AM
[2020-08-08] MEDS: INSULIN LISPRO 100 UNIT/1 ML 3ML VIAL SQ SCH ×4 (08:49→20:28)
[2020-08-08 09:29] LABS: PLATELET ESTIMATE MARKEDLY DECREASED
--- NOTE | 2020-08-08 12:37 | History and Physical ---
SUBJECTIVE: Mr. Trammell is an 89-year-old male, who is referred to me for evaluation of pancytopenia. For detailed consult, please review my dictation dated 08/07/2020. The patient's platelets today are 6000 and white count is 0.12. The patient has not responded to the Neupogen. I have discussed with Dr. Pako Gastelum, who is on-call for Dr. Dayna Pulliam, that this patient belongs to hospice?. Since hospice is considered, I will not give him any platelets, normal, or Neupogen, is terminally ill, unless he refuses hospice. Thank you very much for allowing me to participate in management of this patient. Priscilla Reynolds MD MAQ/MODL /[id number] cc: MD Dayna Zheng MD
[2020-08-08] MEDS: TRIAMCINOLONE ACET 0.1% CREAM 15 GM TUBE TOP SCH ×2 (12:43→18:04)
[2020-08-08] MEDS: SODIUM BICARBONATE 8.4% SYRING 150 ML in DEXTROSE 5% 1,000 ML IV SCH ×2 (12:53→22:00)
--- NOTE | 2020-08-08 13:31 | Progress Note ---
DATE: 08.08.20 SUBJECTIVE: Remains obtunded, weak, multiple comorbidities severely, other severe pancytopenia. OBJECTIVE: GENERAL: Appears lethargic and is chronically ill. VITAL SIGNS: Temperature 98.4, blood pressure 104/49, and pulse 48. CHEST: Clear. EXTREMITIES: Trace edema. ABDOMEN: Minimal distention. ASSESSMENT: 1. Lethargy. 2. Acute tubular necrosis. 3. Neutropenia with presumed sepsis. 4. Underlying cirrhosis. 5. Presumably Staphylococcal bacteremia. ID is pending. PLAN: Discussed with family. They are leaning towards palliative care, I agree. We will follow along. For the time being, leave on IV fluids and conservative management only. MD OCTAVIO LaoK/DANAL /[id number] MTDD
--- NOTE | 2020-08-08 13:58 | NUR ---
Dr. Garrettood here to talk to pt and about hospice care.
[2020-08-08] MEDS ORDERED: POTASSIUM CHLORIDE 20MEQ/100ML 100 ML IV STA (14:03)
--- NOTE | 2020-08-08 14:34 | NUR ---
Received hospice eval order. Spoke to pt's Lani at bedside. She is agreeable. States to use any company recommended by MD. Choice letter signed for [facility]. Copy given to . Discussed IMM letter. She verbalized understanding. Copy of IMM given to . Signed copies of IMM and choice letter placed in front of chart. Referral sent to [facility] at [phone] Stephanie Moeller with [facility] was notified of referral and will contact pt's .
--- NOTE | 2020-08-08 14:37 | Progress Note ---
DATE: 08/08/2020 CHIEF COMPLAINT/HISTORY OF PRESENT ILLNESS: An 89-year-old man, whose primary treating diagnosis is advanced decompensated liver cirrhosis with concomitant renal failure. It is thought that his renal failure is secondary to hepatorenal syndrome. The patient has only worsened clinically. Today's blood work revealed a total bilirubin of 19.3. The patient's BUN and creatinine today is 76 and 3.34 respectively. The patient's potassium today is 3.2. The patient's white blood cell count today is 120, which is extremely neutropenic. The patient's hemoglobin is 7.5 g/dL. The patient's platelet count is 6000. The patient was seen by Hematology, namely Dr. Priscilla Reynolds, who recommended the patient be enrolled in palliative care in the form of hospice. REVIEW OF SYSTEMS: As per HPI. PHYSICAL EXAMINATION: GENERAL: He is weak and bedbound. The patient is very frail. His is at bedside. VITAL SIGNS: Blood pressure is 104/50, heart rate 128, respiratory rate 16, temperature 98.4, and oxygen saturation 93% on room air. His BMI is 25. INTEGUMENT: Skin is warm and dry. The patient has obvious pallor and jaundice. HEENT: Icteric sclerae with dry mucous membranes. NECK: Supple. CARDIOVASCULAR: Tachycardic rate. Regular rhythm. LUNGS: The patient has crackles in the bibasilar area. ABDOMEN: Distended. EXTREMITIES: He has muscle wasting in his extremities. NEUROLOGIC: Intact. No gross deficits, but he does appear to be slightly encephalopathic. DIAGNOSES: 1. Decompensated liver cirrhosis. 2. Hepatorenal syndrome. 3. Profound pancytopenia secondary to advanced cirrhosis. PLAN: 1. I spoke at length with the , who agreed to pursue palliative treatment in the form of home hospice care. 2. The also agreed to make the patient do not resuscitate code status. 3. Supportive care. 4. Comfort measures. 5. Imminent . I spent 35 minutes in the care of this patient. MD ANUP Zheng/JOSE /[id number] JUS
--- NOTE | 2020-08-08 19:00 | NUR ---
Resumed care of patient. Patient resting quietly in bed, no s/s of distress at this time. All safety measures in place. at bedside.
--- NOTE | 2020-08-08 19:19 | NUR ---
walking rounds complete , report given to oncoming nurse.
--- NOTE | 2020-08-08 23:07 | NUR ---
Dr. Francisca Villarreal here to see patient. No new orders received at this time.
[2020-08-09] VITALS: BP 102/66
[2020-08-09 04:00] VITALS: BP 143/65
[2020-08-09] MEDS: SODIUM BICARBONATE 8.4% SYRING 150 ML in DEXTROSE 5% 1,000 ML IV SCH (07:00)
--- NOTE | 2020-08-09 07:02 | NUR ---
Bedside report given to oncoming nurse. Patient in stable condition, no s/s of distress at this time. All safety measures in place. at bedside.
[2020-08-09 07:05] LABS: HEMATOCRIT 24.6 % (38.2-49.6); HEMOGLOBIN 8.6 g/dL (14.0-18.0); LYMPHOCYTES # (AUTO) 0.1 (1.0-3.2); LYMPHOCYTES % 86.7 % (18.0-39.1); MEAN CORPUSCULAR HEMOGLOBIN 30.2 pg (28-32); MEAN CORPUSCULAR VOLUME 86.3 fL (81-99); MONOCYTES % 6.7 % (4.4-11.3); NEUTROPHILS % 6.6 % (38.7-80.0); RED BLOOD COUNT 2.85 x10e6/uL (4.3-5.7); RED CELL DISTRIBUTION WIDTH 14.9 % (11.7-14.4)
[2020-08-09 07:19] LABS: PLATELET COUNT 3 x10e3/uL (140-360)
[2020-08-09 07:26] LABS: ALBUMIN 2.8 g/dL (3.5-5.0); ALBUMIN/GLOBULIN RATIO 1.3 (0.8-2.0); CALCIUM 7.6 mg/dL (8.4-10.2); CREATININE, SERUM 3.17 mg/dL (0.72-1.25)
[2020-08-09] MEDS: INSULIN LISPRO 100 UNIT/1 ML 3ML VIAL SQ SCH ×2 (07:30→11:30)
[2020-08-09 07:31] VITALS: BP 120/53
[2020-08-09 08:40] VITALS: BP 120/53
--- NOTE | 2020-08-09 09:24 | History and Physical ---
SUBJECTIVE: Mr. Trammell is an 89-year-old male with cirrhosis of liver, portal hypertension, hypersplenism, thrombocytopenia, neutropenia, anemia, portal vein thrombosis. I discussed with Dr. Gastelum. The patient suggested a hospice. The patient's hemoglobin today is 8.6, white count of 0.15, and platelets of 3000. Until the family signs, he is unable to sign and he is confused most of the times. I will give him 1 unit of platelets today so that he does not bleed massively until they decide to have hospice. This is a hospice candidate. Priscilla Reynolds MD MAQ/MODL /[id number] cc: MD Pako Yen MD
[2020-08-09 09:41] LABS: LYMPHOCYTES % (MANUAL) 90 % (19-48); MONOCYTES % (MANUAL) 3 % (3.4-9.0); NEUTROPHILS % (MANUAL) 7 % (40-74)
[2020-08-09 09:42] LABS: ANISOCYTOSIS SLIGHT; OVALOCYTES FEW; PLATELET ESTIMATE MARKEDLY DECREASED; PLATELET MORPHOLOGY COMMENT NORMAL; RBC MORPHOLOGY COMMENT NORMAL
[2020-08-09 09:43] LABS: POIKILOCYTOSIS SLIGHT
[2020-08-09] MEDS: ZINC OXIDE/ MENTHOL 113 GM TUBE TOP SCH (10:00)
[2020-08-09] MEDS: TRIAMCINOLONE ACET 0.1% CREAM 15 GM TUBE TOP SCH (10:00)
[2020-08-09 11:19] VITALS: BP 110/44
[2020-08-09 15:37] VITALS: BP 128/65
--- NOTE | 2020-08-09 16:10 | Discharge Summary ---
ADMIT DIAGNOSES: 1. Decompensated liver cirrhosis. 2. Profound pancytopenia secondary to decompensated liver cirrhosis. 3. Portal hypertension secondary to liver cirrhosis. 4. Acute on chronic renal insufficiency. 5. Adult failure to thrive. DISCHARGE DIAGNOSES: 1. Decompensated liver cirrhosis. 2. Profound pancytopenia secondary to advanced cirrhosis. 3. Hepatorenal syndrome. 4. Sepsis secondary to gram-negative emy pneumonia. 5. Adult failure to thrive. HOSPITAL COURSE: An 89-year-old man, who was admitted to [facility] with diagnosis of advanced decompensated liver cirrhosis. He was also found to have profound pancytopenia secondary to his advanced cirrhosis. The patient's white blood cell count on discharge was 150 with 7% neutrophils and 90% lymphocytes. The patient's platelet count on discharge was 3000. On discharge, hemoglobin was 8.6 g/dL. Also, during this hospitalization, he was diagnosed with hepatorenal syndrome. The patient's BUN and creatinine on discharge were 79 and 3.17 respectively. During this hospitalization, the patient was made a do not resuscitate code status. Also, one day prior to being discharged, the patient's ammonia level was elevated at 95. The blood cultures revealed gram-negative rods and coagulase- negative Staphylococcus species. Chest film did reveal patchy airspace opacities in the right perihilar and bilateral lung bases. Thus, the patient was diagnosed with sepsis secondary to bilateral gram-negative emy pneumonia. The patient unfortunately never improved clinically during this hospitalization. The patient was seen by Oncology, namely Dr. Priscilla Reynolds, who stated that given this gentleman's advanced liver cirrhosis and severe pancytopenia as well as his hepatorenal syndrome, he recommend the patient be enrolled in home hospice care. Hospice was discussed with the family, namely the and she did agree to enroll her onto home hospice care. The patient's condition on discharge was stable with extremely poor prognosis. DISCHARGE MEDICATIONS: 1. Hydromorphone 4 mg sublingual every 4 hours as needed for obvious discomfort or shortness of breath. 2. Lorazepam 2 mg every 2 hours as needed for obvious anxiety or agitation. FOLLOWUP INSTRUCTIONS: As previously stated, the patient will be discharged home under hospice care. Prior to discharge in our hospital, an out of hospital do not resuscitate code status was completed. MD ANUP Zheng/JOSE /[id number] cc: MD Elmo Yen MD Salman A Khan, MD Mohammed A Quraishi, MD MTDD
--- NOTE | 2020-08-09 17:46 | NUR ---
pt left hospital via ambulance service, home on hospice.
== END 2020-08-09 16:57 | disposition hospice, home (50) | DRG 432 ==
LOC: ER 12:22 → ERHOLD 14:31 → MED/SURG3 16:53
PROVIDERS: ADMIT Internal Medicine; ATTEND Internal Medicine
PROC: 30233R1 Transfusion of Nonautologous Platelets into Peripheral Vein, Percutaneous Approach (ICD-10-PCS; principal; 2020-08-05)
PROC: 30233N1 Transfusion of Nonautologous Red Blood Cells into Peripheral Vein, Percutaneous Approach (ICD-10-PCS; 2020-08-06)
DX: K74.60 Unspecified cirrhosis of liver (principal); K76.7 Hepatorenal syndrome; I81 Portal vein thrombosis; A41.9 Sepsis, unspecified organism; J15.6 Pneumonia due to other Gram-negative bacteria; D61.818 Other pancytopenia; E44.0 Moderate protein-calorie malnutrition; E87.1 Hypo-osmolality and hyponatremia; E87.2 Acidosis; N17.9 Acute kidney failure, unspecified; I10 Essential (primary) hypertension; E11.9 Type 2 diabetes mellitus without complications; Z68.25 Body mass index [BMI] 25.0-25.9, adult; D69.6 Thrombocytopenia, unspecified; E78.5 Hyperlipidemia, unspecified; D50.0 Iron deficiency anemia secondary to blood loss (chronic); D63.8 Anemia in other chronic diseases classified elsewhere; D70.9 Neutropenia, unspecified; K57.30 Diverticulosis of large intestine without perforation or abscess without bleeding; E03.9 Hypothyroidism, unspecified; R13.10 Dysphagia, unspecified; Z66 Do not resuscitate; Z11.59 Encounter for screening for other viral diseases; R62.7 Adult failure to thrive
CPT/HCPCS: 36415; 70450; 71045; 76770; 80048; 80053; 81001; 82140; 82248; 82570; 82948; 83010; 83605; 83615; 83880; 84155; 84156; 84300; 84484; 84550; 85025; 85045; 85610; 86850; 86900; 86920; 87040; 87071; 87086; 87186; 87205; 93005; 96360; 96372; 99251; 99284; J0360; J0696; J1170; J1442; J1956; J2405; J3480; J7030; J7050; J7070; J7799; P9016; P9034; P9045; P9047; U0002